=== PATIENT | female | born 1940 | race Caucasian/White ===

== ENCOUNTER → 2023-10-13 09:02 | Outpatient (REF) | payer MEDICARE, SELFPAY | LOC: RAD 09:02 | PROVIDERS: ATTENDING PHYSICIAN Internal Medicine Endocrinology, Diabetes & Metabolism; FAMILY PHYSICIAN Physician Assistant Medical | DX: M81.0 Age-related osteoporosis without current pathological fracture (principal) | CPT/HCPCS: 77080; 77081 ==

== ENCOUNTER → 2023-10-24 08:17 | Outpatient (REF) | payer MEDICARE, SELFPAY | LOC: DHCBS MAIN 08:17 | PROVIDERS: ATTENDING PHYSICIAN Internal Medicine Cardiovascular Disease; FAMILY PHYSICIAN Physician Assistant Medical | DX: I42.8 Other cardiomyopathies (principal) | CPT/HCPCS: 93306 ==

== ENCOUNTER 2023-11-17 12:38 | Emergency (ER) | payer MEDICARE, SELFPAY ==
[2023-11-17 12:52] VITALS: BP 100/45
[2023-11-17 15:22] LABS: % Basophils 0.5 % (0-2); % Eosinophils 0.8 % (0-6); % Immature Granulocytes 0.5 % (0-0.5); % Lymphocytes 19.4 % (20.5-51.1); % Monocytes 7.2 % (1.7-9.3); % Neutrophils 71.6 % (42.2-75.2); Absolute Eosinophils 0.1 10^3/uL (0-0.7); Absolute Lymphocytes 1.2 10^3/uL (1.2-3.4); Absolute Monocytes 0.4 10^3/uL (0.1-0.6); Absolute Neutrophils 4.3 10^3/uL (1.4-6.5); Hematocrit 29.6 % (37.0-47.0); Hemoglobin 9.6 g/dL (12.0-16.0); Mean Corp Hgb Conc. 32.4 g/dL (33.0-37.0); Mean Corpuscular Hgb 26.6 pg (27.0-31.0); Mean Platelet Volume 9.6 fL (7.4-10.4); Nucleated Red Blood Cells % 0 %; Platelet Count 200 10^3/uL (130-400); Red Blood Cell Count 3.61 10^6/uL (4.20-5.40); Red Cell Dist. Width 16.5 % (11.5-14.5)
[2023-11-17 15:38] LABS: ALT (SGPT) < 10 U/L (0-35); AST (SGOT) 18 U/L (14-36); Albumin 3.5 g/dl (3.5-5.0); Alkaline Phosphatase 62 U/L (38-126); Blood Urea Nitrogen 20 mg/dl (7-17); Calcium 10.1 mg/dl (8.4-10.2); Carbon Dioxide 31 mmol/L (22-30); Chloride 99 mmol/L (98-107); Glucose 100 mg/dl (70-99); Potassium 3.2 mmol/L (3.5-5.1); Sodium 138 mmol/L (135-145); Total Bilirubin 1.2 mg/dl (0.2-1.3); Total Protein 6.5 g/dl (6.3-8.2); eGFR > 60.00
[2023-11-17 15:42] LABS: Troponin I 0.016 ng/ml
[2023-11-17] MEDS: KLOR-CON 20 MEQ PO (16:02)
--- NOTE | 2023-11-17 16:03 | ED.MUSCINJ ---
HPI-Injury
General
Chief Complaint: Musculo-Skeletal Complaint
Source: patient
Exam Limitations: none
Time Seen by Provider: 11/17/23 14:46
Nursing documentation reviewed up to this point in time: agreed with
Travel History
Have you had any contact with someone who has COVID-19?: No
Do you have any symptoms of coronavirus? Fever > 100 degrees, chills, cough, shortness of breath, sore throat, loss of taste or smell, muscle aches, or headache?: No
History of Present Illness-Injury
Is this injury a work related problem?: No
Is pt an associate of [facility]?: No
Initial Injury comments:
Patient to ED after falling yesterday. She was seen by PCP today for complaint of right wrist pain. PCP requested she come to ED to r/o other causes of her fall as she was not clear on what led to fall. SHe has no other complaints.
Past History
Past History
ED Past Medical History: Arrthythmia (sinus tachycardia), CAD, Cancer (breast), CHF (Cardiomyopathy), HTN, NIDDM and Other (Osteopenia, dementia)
ED Past Surgical History: Appendectomy, Cardiac (AICD June 2015), Cholecystectomy and Orthopedic
Social History
Tobacco: Non-smoker
Alcohol: None
Personal:
Living: with family
Employment: Retired
Family History
Family History: Other (Father with kidney cancer, mother with dementia)
Review of Systems
Review of Systems
Allergies reviewed?: Yes
All Other Systems: ROS reviewed and negative except as documented in HPI and ROS
Constitutional: Reports no symptoms
EENT: Reports no symptoms
Respiratory: Reports no symptoms
Cardiac: Reports no symptoms
ABD/GI: Reports no symptoms
: Reports no symptoms
Musculoskeletal: Reports joint pain (Pain to right wrist)
Skin: Reports no symptoms
Neurological: Reports no symptoms
Psychiatric: Reports no symptoms
Musculoskeletal Injury Exam
Musculoskeletal Injury Exam
Right Wrist:
Pain with Movement?: Moderate
Tender to palpation?: Moderate
Soft tissue swelling?: Mild
External deformity and angulation?: None
Joint effusion?: None
Contusion?: Moderate
Hematoma-local bleeding into tissue?: None
Strain- Sprain- Tear (Connective tissue injury)?: Moderate
Crepitus with movement?: No
Joint instability?: No
Malalignment/deformity?: No
Range of motion: Full
Distal skin color and temperature: normal-warm & good color
Capillary Refill: normal
Normal distal neurovascular exam?: Yes
Peripheral Pulses: radial (right): 3+
Phy Exam
General Physical Exam
General Presentation: well appearing and no apparent distress
General age: appears stated age
General Skin: warm and dry
General Habitus: normal
General Mental: alert
Cardiovascular Exam
Cardiovascular Exam: regular rate/rhythm and no edema
Pulmonary Exam
Pulmonary Exam: lungs clear and no respiratory distress
Gastrointestinal Exam
Gastrointestinal Exam: normal bowel sounds, non tender, soft, no organomegaly, non distended and no cva tenderness
Rectal Exam: normal external exam, normal sphincter tone, no rectal mass and soft stool
Stool: brown
Guaiac Status: negative
Neurological Exam
Neurological Exam: alert, oriented x3, CN II-XII intact, no motor deficits, no sensory deficits, speech normal and normal gait
Musculoskeletal Exam
Musculoskeletal Exam: full ROM and neuro vasc intact
Skin Exam
Skin Exam: normal color, warm/dry and no rash
Psychiatric Exam
Psychiatric Exam: normal mood/affect
Injury Course
Orders/Labs/Results
Orders:
Orders
11/17/23 12:58
EKG [Electrocardiogram (*1)] Urgent
Reason for Study: Vertigo / Dizzy
CR Wrist - Right Min 3 Views Urgent
Comment:
Reason For Exam: injury/pain
11/17/23 12:59
EKG- Treatment ONCE
11/17/23 14:57
[place] Wrist Right-Tx ONCE
11/17/23 15:11
Complete Blood Count/With Diff Urgent
Comprehensive Metabolic Panel Urgent
Troponin I Urgent
11/17/23 16:02
Potassium Chloride Powder [Klor-Con] 20 meq PO NOW STA
Abnormal Lab Results
11/17/23
15:11
RBC 3.61 L 10^6/uL
(4.20-5.40)
Hgb 9.6 L g/dL
(12.0-16.0)
Hct 29.6 L %
(37.0-47.0)
MCH 26.6 L pg
(27.0-31.0)
MCHC 32.4 L g/dL
(33.0-37.0)
RDW 16.5 H %
(11.5-14.5)
Lymphocytes % 19.4 L %
(20.5-51.1)
Potassium 3.2 L mmol/L
(3.5-5.1)
Carbon Dioxide 31 H mmol/L
(22-30)
BUN 20 H mg/dl
(7-17)
Glucose 100 H mg/dl
(70-99)
11/17/23 15:11
11/17/23 15:11
*Radiology
Radiology exam reviewed: radiology read reviewed
*Pulse Oximetry
Patient hypoxic: no
*Critical Care Note
Total Time (30-74mins, 75-104mins- exclusive of procedures): Not Applicable
Update Note
Update Note:
Labs reviewed. Hgb 9.7 noted. No obvious bleeding. rectal exam neg. K 3.2 Given additional 20meq in dept (Takes 10meq bid). Neuro exam normal. Wrist xray without any evidence of fx, universal splint applied. Discussed findings with patient.
SHe is discharged home and will follow up closely with PCP. given instructions on s/s to return to ED and she is agreeable to plan.
ED Attending Note
-
Portions of this chart may have been created with voice recognition software.� Occasional wrong word or��sound alike� substitutions may have occurred due to the inherent limitations of voice recognition software.
Discharge Plan
Departure
Patient Disposition: Home (Routine Discharge)
Date of Disposition: 11/17/23
Time of Disposition: 15:59
Patient with high blood pressure during this ER visit?: No
Condition: Good
Covid-19: Not Applicable
Discharge Problem:
Sprain of right wrist, Anemia
Instructions: Sprain (DC), Using Cold for Pain
Prescriptions:
No Action
metformin 500 MG tablet
500 mg PO BID
digoxin 0.125 MG tablet
0.125 mg PO Q48H
alendronate 70 MG tablet
70 mg PO WEEKLY
montelukast 10 MG tablet
10 mg PO DAILY
flaxseed oil 1,000 MG capsule
1,000 mg PO DAILY
carvedilol 12.5 mg Tablet
12.5 mg PO BID
furosemide [Lasix] 80 mg Tablet
80 mg PO DAILY
cholecalciferol (vitamin D3) [Vitamin D3] 25 mcg (1,000 unit) Tablet,Chewable
25 mcg PO DAILY
simvastatin 10 mg Tablet
10 mg PO HS
potassium chloride 10 mEq Tablet Extended Release
10 meq PO BID
Referrals:
UNKNOWN - PT DOES,NOT KNOW [Family Provider] -
Activity Restrictions/Additional Instructions:
As we discussed, your blood work is showing signs of anemia. Please follow up with your family doctor on monday for further monitoring and treatment.
Interventions
Interventions:
*Risk Screen - Suicide Last Done: 11/17/23 15:25
*General Assessment Last Done: 11/17/23 15:25
*Neglect/Abuse Screening Last Done: 11/17/23 15:25
ED- Fall Risk Assessment Last Done: 11/17/23 15:25
*ED COVID-19 Vaccine History Last Done: 11/17/23 12:52
ED-Musculoskeletal Assessment Last Done: 11/17/23 15:25
== END 2023-11-17 16:15 | disposition home or self-care (01) ==
LOC: EMR 12:38
PROVIDERS: Nurse Practitioner; EMERGENCY PHYSICIAN Emergency Medicine
DX: S63.501A Unspecified sprain of right wrist, initial encounter (principal); W19.XXXA Unspecified fall, initial encounter; D64.9 Anemia, unspecified
CPT/HCPCS: 99285; 29125; 73110; 80053; 84484; 85025; 93005

== ENCOUNTER 2024-04-22 18:18 | Emergency (ER) | payer MEDICARE, SELFPAY ==
[2024-04-22 19:11] VITALS: BP 108/70
--- NOTE | 2024-04-22 22:24 | ED.GENMED ---
History of Present Illness
<MARISSA Tsai - Last Filed: 04/22/24 22:41>
General
Chief Complaint: Fall
Source: patient
Time Seen by Provider: 04/22/24 21:59
History of Present Illness
History of Present Illness:
Patient is an 83 y/o female with PHx of CHF, HTN, HLD, CAD, cardiomyopathy, breast CA, and DM presenting with left wrist pain following a fall earlier today. Patient states she was gardening earlier and tripped in the yard, landing on her left wrist
and hitting the left side of her head. She denies any LOC. She states she has pain in the dorsal medial aspect of her left wrist with movement, worse with extension. She denies any pain at rest and states the pain is a 3/10 with movement. She also
states she is having pain in the left lateral aspect of her neck. She states it only hurts when she moves her head and it is a 2/10. She states it does not radiate anywhere. She denies any dizziness, vision changes, nausea, vomiting, SOB, chest
pain.
Past History
<MARISSA Tsai - Last Filed: 04/22/24 22:41>
Past History
ED Past Medical History: Arrthythmia (sinus tachycardia), CAD, Cancer (breast), CHF (Cardiomyopathy), HTN, NIDDM and Other (Osteopenia, dementia)
ED Past Surgical History: Appendectomy, Cardiac (AICD June 2015), Cholecystectomy and Orthopedic
Social History
Tobacco: Non-smoker
Alcohol: None
Personal:
Living: with family
Employment: Retired
Family History
Family History: Other (Father with kidney cancer, mother with dementia)
Phy Exam
<MARISSA Tsai - Last Filed: 04/22/24 22:41>
Physical Exam
Physical Exam:
GENERAL: Alert , in no apparent distress
EYE: pupils equal and reactive
Throat: Airway intact, no exudates
NECK: Supple, no significant adenopathy.
CARDIAC: Regular rate and rhythm .
LUNGS: Clear breath sounds bilaterally, no acute respiratory distress, no wheezes/rales/rhonchi
ABDOMEN: Soft, nondistended, nontender
NEUROLOGICAL: Alert and oriented x3, no focal neuro deficits, following commands appropriately
SKIN: Abrasion on the left lateral forehead
MUSCULOSKELETAL: Mild edema to the medial dorsum of the left wrist. Pain with ROM of the left wrist, worse with extension. Sensation and neurovascularly intact b/l. Mild pain with ROM of the cervical spine. Cervival spine ROM intact. Mild muscular
tenderness with palpation of the left trapezius. No bony tenderness to the cervical spine.
PSYCH: Normal and appropriate interaction.
Course
<Anthony Casas [facility] - Last Filed: 04/22/24 22:41>
Orders/Labs/Results
Orders:
Orders
04/22/24 19:15
CT Head W/o Iv Contrast Urgent
Comment:
Reason For Exam: fall from standing, left forehead strike.
Wrist, Left 3 Views CR [CR Wrist - Left Min 3 Views] Urgent
Comment:
Reason For Exam: left wrist injury, pain and swelling.
04/22/24 22:59
Univ. Wrist w/ Thumb Left-Tx ONCE
[place] Wrist Left-Treatment ONCE
Vital Signs
Initial and Last Documented VS:
Initial Vital Signs
Temp Pulse Resp BP Pulse Ox
97.8 F 93 18 108/70 98
04/22/24 19:11 04/22/24 19:11 04/22/24 19:11 04/22/24 19:11 04/22/24 19:11
Last Documented Vital Signs
Temp Pulse Resp BP Pulse Ox
97.8 F 93 18 108/70 98
04/22/24 19:11 04/22/24 19:11 04/22/24 19:11 04/22/24 19:11 04/22/24 19:11
<Gabriela Brandt DO - Last Filed: 04/22/24 23:21>
Orders/Labs/Results
Orders:
Orders
04/22/24 19:15
CT Head W/o Iv Contrast Urgent
Comment:
Reason For Exam: fall from standing, left forehead strike.
Wrist, Left 3 Views CR [CR Wrist - Left Min 3 Views] Urgent
Comment:
Reason For Exam: left wrist injury, pain and swelling.
04/22/24 22:59
Univ. Wrist w/ Thumb Left-Tx ONCE
[place] Wrist Left-Treatment ONCE
Vital Signs
Initial and Last Documented VS:
Initial Vital Signs
Temp Pulse Resp BP Pulse Ox
97.8 F 93 18 108/70 98
04/22/24 19:11 04/22/24 19:11 04/22/24 19:11 04/22/24 19:11 04/22/24 19:11
Last Documented Vital Signs
Temp Pulse Resp BP Pulse Ox
97.8 F 93 18 108/70 98
04/22/24 19:11 04/22/24 19:11 04/22/24 19:11 04/22/24 19:11 04/22/24 19:11
<MARISSA Tsai - Last Filed: 04/22/24 22:41>
MDM/Problems Addressed
Differential Diagnosis Includes:
Left wrist sprain, left wrist fracture, ICH
<MARISSA Tsai - Last Filed: 04/22/24 22:41>
*Radiology
Radiology exam reviewed: radiology read reviewed (Wrist x-ray: no acute fracture or dislocation. Head CT: no acute intracranial abnormality noted. )
*Pulse Oximetry
Patient hypoxic: no
*EKG
Interpreted by ED Provider?: NA
*General Technician Interpretation
Rate: General Technician- N/A
*Critical Care Note
Total Time (30-74mins, 75-104mins- exclusive of procedures): Not Applicable
ED Attending Note
<MARISSA Tsai - Last Filed: 04/22/24 22:41>
-
Portions of this chart may have been created with voice recognition software.� Occasional wrong word or��sound alike� substitutions may have occurred due to the inherent limitations of voice recognition software.
<Gabriela Brandt DO - Last Filed: 04/22/24 23:21>
ED Attending Note
Patient seen and examined by attending physician: Yes
I performed the substantive portion of visit, reviewed & personally made and approve the management plan that is documented in note by myself or SOO.: Yes
ED Attending Note:
This is an 83-year-old woman who resides at home with her .
While outside in her yard she suffered a trip and fall, falling onto her left side injuring her left wrist. She admits to striking the left side of her head on the grass. No loss of consciousness. She was able to get herself up after the fall.
She arrives via EMS.
She complains of moderate pain to her left dorsal wrist. She denies headache, denies neck nor back pain, no leg pain nor abdominal pain, no dizziness nor lightheadedness.
She takes no anticoagulants.
Review of records reveals ED visit November 2021 after suffering similar fall and at that time was complaining of right wrist pain. X-rays were negative. Laboratory studies showed mild anemia and very mild hypokalemia.
Recent outpatient laboratory studies April 11 however at show normal CBC with normal H&H, normal platelet count, normal white blood cell count.
Hemoglobin A1c excellent at 5.8. Unremarkable chemistries. Normal B12, folic acid and iron studies.
TRAUMA EXAM:
VITAL SIGNS: Vital signs reviewed, cooperative
DISTRESS: No active disease. 83-year-old woman appears her stated age, bright and alert, pleasant, appears in no acute distress. Daughter is accompanying.
EYES: Pupils reactive, extraocular muscles intact.
NOSE: No deformity or epistaxis
FACE AND SCALP: There is a 2 cm very superficial abrasion left lateral superior brow, no soft tissue swelling nor palpable tenderness. There is a minute abrasion left lateral distal nose. No epistaxis. No nasal tenderness. External canals no
blood
NECK: Supple nontender, full range of motion without difficulty nor pain.
BACK: Back nontender, pelvis stable to compression
RESPIRATORY: No distress, breath sounds normal, no tender chest wall
CARDIAC: No murmur, pulses equal and strong
ABDOMEN: Soft nontender bowel sounds normal
SKIN: Skin intact no bleeding, color normal
EXTREMITIES: Mild to moderate tenderness dorsal distal radial aspect of the left wrist full wrist range of motion with increased pain with extension and flexion. No tenderness to the hand nor digits, manager water wastewater strength is full and equal bilaterally.
NEUROLOGICAL: Alert, oriented, no motor deficits
PSYCH: Mood affect normal
Concern for left wrist fracture, thus x-ray left wrist obtained. Due to advanced age, head injury CT of the head obtained as well.
Left wrist x-ray negative for fracture. CT of the head is unremarkable.
Nothing in history nor exam to suspect orthostasis nor arrhythmia.
Will place in Velcro wrist splint with thumb.
Recommend Tylenol as needed for pain, ice, elevation.
Prompt follow-up with PCP for recheck.
Patient does have history of mild dementia and daughter concerned with her mother's dementia/memory issues and requests referral to neurologist.
Patient remains bright and alert, oriented x 3 and has full recollection of today's events including mechanism of fall.
She resides at home with her . She did suffer a fall November of this year but at this point it does not appear that she has frequent falls.
At this point patient appears safe to return home and recommend prompt follow-up PCP and she has been provided information for neurology follow-up as well.
Return precautions since discussed.
Discharge Plan
Departure
Patient Disposition: Home (Routine Discharge)
Date of Disposition: 04/22/24
Time of Disposition: 22:59
Patient with high blood pressure during this ER visit?: No
Condition: Good
Discharge Problem:
Fall at home, Contusion of left wrist, initial encounter, left facial abrasion
Instructions: Head Injury in Adults (DC), Preventing falls in adults, Wrist Sprain ED
Prescriptions:
No Action
metformin 500 MG tablet
500 mg PO BID
digoxin 0.125 MG tablet
0.125 mg PO Q48H
alendronate 70 MG tablet
70 mg PO WEEKLY
montelukast 10 MG tablet
10 mg PO DAILY
flaxseed oil 1,000 MG capsule
1,000 mg PO DAILY
carvedilol 12.5 mg Tablet
12.5 mg PO BID
furosemide [Lasix] 80 mg Tablet
80 mg PO DAILY
cholecalciferol (vitamin D3) [Vitamin D3] 25 mcg (1,000 unit) Tablet,Chewable
25 mcg PO DAILY
simvastatin 10 mg Tablet
10 mg PO HS
potassium chloride 10 mEq Tablet Extended Release
10 meq PO BID
Referrals:
Al Agrawal MD [Active] - Call in 1-3 days for appt
Benjamin Wagoner MD [Family Provider] - Call in 1-3 days for appt
Interventions
Interventions:
*Risk Screen - Suicide Last Done: 04/22/24 19:11
*General Assessment Last Done: 04/22/24 19:11
*Neglect/Abuse Screening Last Done: 04/22/24 19:11
ED- Fall Risk Assessment Last Done: 04/22/24 21:36
*ED COVID-19 Vaccine History Last Done: 04/22/24 21:35
ED-Musculoskeletal Assessment Last Done: 04/22/24 21:51
ED- Neurological Assessment Last Done: 04/22/24 21:36
ED-Skin Assessment Last Done: 04/22/24 21:51
Discharge Date and Time
Print Language: MONGOLIAN
== END 2024-04-22 23:10 | disposition home or self-care (01) ==
LOC: EMR 18:18
PROVIDERS: EMERGENCY PHYSICIAN Emergency Medicine; FAMILY PHYSICIAN Family Medicine
DX: S00.81XA Abrasion of other part of head, initial encounter (principal); S60.212A Contusion of left wrist, initial encounter; W01.0XXA Fall on same level from slipping, tripping and stumbling without subsequent striking against object, initial encounter; Y92.009 Unspecified place in unspecified non-institutional (private) residence as the place of occurrence of the external cause; I11.0 Hypertensive heart disease with heart failure; I50.9 Heart failure, unspecified; E78.00 Pure hypercholesterolemia, unspecified; E11.9 Type 2 diabetes mellitus without complications; I42.9 Cardiomyopathy, unspecified; F03.90 Unspecified dementia, unspecified severity, without behavioral disturbance, psychotic disturbance, mood disturbance, and anxiety; I25.10 Atherosclerotic heart disease of native coronary artery without angina pectoris; M85.80 Other specified disorders of bone density and structure, unspecified site; Z85.3 Personal history of malignant neoplasm of breast; Z90.49 Acquired absence of other specified parts of digestive tract; Z95.810 Presence of automatic (implantable) cardiac defibrillator
CPT/HCPCS: 99284; 70450; 73110

== ENCOUNTER 2024-05-08 13:54 | Inpatient (IN) | payer MEDICARE, SELFPAY ==
[2024-05-08 08:20] VITALS: BMI 18.6
[2024-05-08 08:23] VITALS: BP 97/74
--- NOTE | 2024-05-08 08:33 | ED.GENMED ---
History of Present Illness
General
Chief Complaint: Fall
Source: ambulance crew
Exam Limitations: dementia
Time Seen by Provider: 05/08/24 08:31
History of Present Illness
History of Present Illness:
83 yo female from home post fall. Pt with dementia and poor historian.
Spoke with daughter Daneila who states she was in the shower and she heard a thud and her dad opened the door and said 'your mother fell again your mother fell again,' this was unwitnessed, he then went in and found her on the ground complaining of
left hip pain and daughter says she also had left shoulder pain.
Pt denies shoulder pain at this time, has pain in left hip.
She fell a couple weeks ago and sprained her wrist, she had a couple of contusions on her head from the first fall.
Past History
Past History
ED Past Medical History: Arrthythmia (sinus tachycardia), CAD, Cancer (breast), CHF (Cardiomyopathy), HTN, NIDDM and Other (Osteopenia, dementia)
ED Past Surgical History: Appendectomy, Cardiac (AICD June 2015), Cholecystectomy and Orthopedic
Social History
Tobacco: Non-smoker
Alcohol: None
Personal:
Living: with family
Employment: Retired
Family History
Family History: Other (Father with kidney cancer, mother with dementia)
Review of Systems
Review of Systems
Allergies reviewed?: Yes
All Other Systems: ROS reviewed and negative except as documented in HPI and ROS
Constitutional: Denies fever
Respiratory: Denies trouble breathing
Cardiac: Denies chest pain or syncope
ABD/GI: Denies abdominal pain, vomiting or diarrhea
: Reports urgency (keeps repeating 'I have to go to the bathroom' then 'I can't go.' )
Musculoskeletal: Reports other (Left hip pain)
Skin: Reports no symptoms
Neurological: Denies headache
Phy Exam
Physical Exam
Physical Exam:
GENERAL: No acute distress. Alert, demented, frail
CONSTITUTIONAL: Afebrile.
EYES: PERRL, conjunctivae normal
Neck: Supple
ENMT: moist mucus membranes, Pharynx nl
RESPIRATORY: Regular respirations, nonlabored, lungs clear.
CARDIOVASCULAR: Regular rate and rhythm, no murmurs, no rubs.
GI: Soft, nontender, normal BS
MUSCULOSKELETAL: No spinal bony tenderness. Non tender upper extremities with full ROM, no left shoulder tenderness. Moves lower extremities well, no pain RLE. Flexes left knee with no pain. SLR left leg states she has pain in left hip area. Moves
with ease. Well perfused.
SKIN: Warm, dry, pink
PSYCH: Depressed, tearful 'I want to .' Well kept.
NEUROLOGIC: Awake, alert. No focal neurological deficits.
Course
Orders/Labs/Results
Orders:
Orders
05/08/24 08:24
Electrocardiogram (*1) Urgent
Reason for Study: Syncope
Electrocardiogram (*1) Urgent
EKG- Treatment ONCE
05/08/24 08:40
CPK Isoenzyme Urgent
Complete Blood Count/With Diff Urgent
Comprehensive Metabolic Panel Urgent
05/08/24 08:49
Hip, Left 2-3 Views [CR Hip - LT w/wo Pel 2-3 Vw*] Urgent
Comment:
Reason For Exam: pain after fall
Include a pelvis x-ray?: Yes
05/08/24 09:18
0.9% Sodium Chloride 500 ml [Nss] 500 ml IV BOLUS
05/08/24 10:19
CT Lower Ext W/o Iv Cont Lt Urgent
Comment:
Reason For Exam: neg hip xray, still signif pain after fall
05/08/24 10:22
Case Management Consult ONCE
Case Management Consult: Discharge Planning
Requested By:: PHYSICIAN
Comment: Daughter requesting rehab, she works full time paramedic, pts frail and can't take care of her.
Needs home care or rehab. Pt very demented.
05/08/24 10:31
Urinalysis Reflex To Culture Urgent
Date Specimen was Collected: 05/08/24
Time Specimen was Collected: 10:30
05/08/24 11:37
ORTHOPEDIC CONSULT Urgent
Consulting Provider: Alex Villagomez
Was physician already notified: Yes
Reason for consult: fracture left hip
05/08/24 13:18
Morphine Sulfate 2 mg IV Q4HPRN PRN
05/08/24 13:21
Morphine Sulfate 2 mg IV NOW STA
05/08/24 13:37
Negrete Catheter [Catheter- Indwelling] As Directed
Reason for insertion: Acute Retention
Discontinue Date/Time: 05/11/24 0600
05/08/24 13:39
Admit/Transfer Patient As Directed
Co-Sign Provider:
Level of Care: Inpatient admission
Assign to:: Telemetry
Physician / Group: Guillaume Gallardo
Diagnosis: Left hip fracture
Reason for Telemetry: Arrhythmia
Date to Stop Telemetry: 05/11/24
Time to Stop Telemetry: 11:00
Reason for Hospitalization: Left hip fracture
Expected length of stay greater than two midnights?: Yes
ELOS- Estimated Length of Stay in days: 2
I certify the patient meets the requirements for IP care: Yes
PRN Pain Medication Management As Directed
May give lesser potent ordered pain med per pt: Yes
preference::
Protocol:: Medication orders for pain may be administered in a
manner that supports deferring to patient preference
when the pt is:
- Requesting an ordered lesser potent pain medication.
Least to most potent pain medications are defined
as: acetaminophen < NSAID < tramadol < opioids
(morphine, oxycodone, hydromorphone).
- Requesting a lesser dose of the same medication IF
ORDERED.
- Requesting a less intrusive route of administration
if both routes are prescribed by the provider (PO <
IV).
05/08/24 13:40
Code Status As Directed
Resuscitation Status: Do not resuscitate
Reached after discussion with pt or family/Healthcare POA: Yes
05/08/24 13:41
DNR Bracelet Application ONCE
05/11/24 11:00
DC Protocol for Telemetry ONCE
Abnormal Lab Results
05/08/24 05/08/24
08:40 10:31
RBC 4.10 L 10^6/uL
(4.20-5.40)
Hgb 11.8 L g/dL
(12.0-16.0)
Hct 35.3 L %
(37.0-47.0)
Absolute Lymphs (auto) 1.0 L 10^3/uL
(1.2-3.4)
Neutrophils % 77.2 H %
(42.2-75.2)
Lymphocytes % 15.3 L %
(20.5-51.1)
Chloride 97 L mmol/L
(98-107)
BUN 27 H mg/dl
(7-17)
Creatinine 1.4 H mg/dL
(0.6-1.0)
Glucose 138 H mg/dl
(70-99)
Calcium 10.8 H mg/dl
(8.4-10.2)
Total Protein 6.2 L g/dl
(6.3-8.2)
Urine Glucose 2+ A
(Negative)
05/08/24 08:40
05/08/24 08:40
Vital Signs
Initial and Last Documented VS:
Initial Vital Signs
Temp Pulse Resp Pulse Ox
98.0 F 82 18 99
05/08/24 08:20 05/08/24 08:20 05/08/24 08:20 05/08/24 08:20
Last Documented Vital Signs
Temp Pulse Resp BP Pulse Ox
98.0 F 77 15 108/51 100
05/08/24 08:20 05/08/24 13:45 05/08/24 13:45 05/08/24 10:00 05/08/24 11:15
MDM/Problems Addressed
Differential Diagnosis Includes:
mechanical fall, UTI, dehydration, hip fracture/pelvic fracture
MDM/Problems Addressed:
83 yo female from home post fall. Pt with dementia and poor historian.
Spoke with daughter Daniela who states she was in the shower and she heard a thud and her dad opened the door and said 'your mother fell again your mother fell again,' this was unwitnessed, he then went in and found her on the ground complaining of
left hip pain and daughter says she also had left shoulder pain.
Pt denies shoulder pain at this time, has pain in left hip.
She fell a couple weeks ago and sprained her wrist, she had a couple of contusions on her head from the first fall.
Afebrile NAD, EKG Paced rhythm
Pt denies CP, abdominal pain. Denies trouble breathing
CBC with no clinically significant abnormality
CMP: mild elevation BUN/Creat (IV fluids ordered for mild dehydration)
10:10 a.m.
Xray left hip radiology report reviewed: IMPRESSION:
Prior screw fixation of the left femoral neck without evidence of hardware complication or acute periprosthetic fracture.
Mild degenerative changes of the left hip with moderate degenerative changes of the right hip.
Daughter Daniela at bedside. Results discussed with her.
10:20
Pt unable to void in bed. OOB and ambulated to bathroom with significant pain left hip. Was able to urinate.
Will obtain hip CT to r/o occult fx
Daughter states pt cannot go home. frail and unable to care for her, daughter works full time paramedic. Requesting rehab.
Case Management consulted
11:30 AM: CAT scan left hip radiology report read: IMPRESSION:
Prior screw fixation of the proximal left femur. There is a comminuted, minimally displaced fracture through the greater trochanter, superior to the surgical screws.
Plan: Admit: Fx left hip
Hospitalist notified of admission
Orthopedic consult in
*EKG
EKG Intrepretation Date: 05/08/24
Interpretation: abnormal
Rate: normal
Rhythm: other (Atrial paced)
[place]: normal axis
QRS Pattern: normal QRS
Ischemia: no ischemia
*Critical Care Note
Total Time (30-74mins, 75-104mins- exclusive of procedures): Not Applicable
ED Attending Note
-
Portions of this chart may have been created with voice recognition software.� Occasional wrong word or��sound alike� substitutions may have occurred due to the inherent limitations of voice recognition software.
Discharge Plan
Departure
Patient Disposition: Admit
Date of Disposition: 05/08/24
Time of Disposition: 11:42
Presentation/result/management discussed w/ accepting MD/DO: Hospitalist
Condition: Fair
Discharge Problem:
Fall, Closed fracture of left hip, Dementia
Interventions
Interventions:
*Risk Screen - Suicide Last Done: 05/08/24 08:31
*General Assessment Last Done: 05/08/24 12:00
*Neglect/Abuse Screening Last Done: 05/08/24 12:00
ED- Fall Risk Assessment Last Done: 05/08/24 12:00
ED-Musculoskeletal Assessment Last Done: 05/08/24 12:00
ED- Neurological Assessment Last Done: 05/08/24 12:00
ED-Skin Assessment Last Done: 05/08/24 12:00
[2024-05-08 08:59] LABS: % Basophils 0.6 % (0-2); % Eosinophils 1.1 % (0-6); % Immature Granulocytes 0.5 % (0-0.5); % Lymphocytes 15.3 % (20.5-51.1); % Monocytes 5.3 % (1.7-9.3); % Neutrophils 77.2 % (42.2-75.2); Absolute Eosinophils 0.1 10^3/uL (0-0.7); Absolute Monocytes 0.3 10^3/uL (0.1-0.6); Absolute Neutrophils 4.8 10^3/uL (1.4-6.5); Hematocrit 35.3 % (37.0-47.0); Hemoglobin 11.8 g/dL (12.0-16.0); Mean Corp Hgb Conc. 33.4 g/dL (33.0-37.0); Mean Corpuscular Hgb 28.8 pg (27.0-31.0); Mean Corpuscular Volume 86.1 fL (81.0-99.0); Mean Platelet Volume 9.9 fL (7.4-10.4); Nucleated Red Blood Cells % 0 %; Platelet Count 208 10^3/uL (130-400); Red Cell Dist. Width 13.4 % (11.5-14.5); White Blood Cell Count 6.3 10^3/uL (4.8-10.8)
[2024-05-08 09:06] LABS: ALT (SGPT) 12 U/L (0-35); AST (SGOT) 24 U/L (14-36); Albumin 3.8 g/dl (3.5-5.0); Alkaline Phosphatase 74 U/L (38-126); Blood Urea Nitrogen 27 mg/dl (7-17); Calcium 10.8 mg/dl (8.4-10.2); Chloride 97 mmol/L (98-107); Estimated Creatinine Clearance 23 ml/min; Glucose 138 mg/dl (70-99); Potassium 4.4 mmol/L (3.5-5.1); Sodium 139 mmol/L (135-145); Total Bilirubin 1.2 mg/dl (0.2-1.3); Total Protein 6.2 g/dl (6.3-8.2); eGFR 37.56
[2024-05-08 09:21] LABS: Carbon Dioxide 25 mmol/L (22-30); Total CK 49 U/L (30-135)
[2024-05-08] MEDS: NSS 500 IV (09:29)
[2024-05-08 10:00] VITALS: BP 108/51
[2024-05-08 11:25] LABS: Urine Albumin Negative (Neg - Trace); Urine Bilirubin Negative (Negative); Urine Character Clear (Clear); Urine Color Straw; Urine Glucose 2+ (Negative); Urine Ketone Negative (Negative); Urine Leukocyte Negative (Negative); Urine Nitrite Negative (Negative); Urine Occult Blood Negative (Negative); Urine Specific Gravity 1.015 (<1.030); Urine Urobilinogen Negative (Neg - 1+)
--- NOTE | 2024-05-08 13:10 | HPS.HSE ---
Addendum entered and electronically signed by Guillaume Gallardo MD 05/08/24 15:08:
I personally performed a history and physical exam of the patient and discussed management with the resident. I reviewed the resident's note and agree with the documented findings and plan of care HPI/CC.
83-year-old male with past medical history of presumed dementia, essential hypertension, yiq-jhfrxuq-piwywtlbd diabetes mellitus, iron deficiency, chronic systolic congestive heart failure status post ICD, Hyperglycemia, thyroid nodule,
hyperparathyroidism?, History of breast cancer status post bilateral mastectomy and reconstruction surgery and chemotherapy, history of NSVT came to ER after having a mechanical fall at home. Patient apparently slid out of bed and landed on left
hip and shoulder. Patient usually able to get around without any assistance. Patient in significant pain and not able to provide any meaningful information, all information gathered from patient daughter at bedside. No reported history of
dizziness/syncope. Patient of questionable history of dementia and has been in process of being established care with neurologist.
1. Left greater trochanteric fracture
h/o left hip fracture/gamma nailing
Mechanical fall
-CT of LE reviewed
-Orthopedic surgery evaluated and ER and patient not a surgical candidate
-Maintain patient on oral pain medication for pain control
-WBAT left leg for transfer otherwise nonweightbearing.
-Follow-up with orthopedic surgery in office in 2 to 3 weeks.
2. Presumed dementia
-Reported issues with being forgetful. No sundowning agitation or behavioral issues
-Daughter in process of establishing care with neurology
-Psychiatry evaluated in ER and patient does NOT have decision making capacity
-Maintain on PRN ativan for anxiety/agitation
3. Chronic systolic CHF
-Echocardiogram reviewed with patient EF of 20 to 25%
-Patient have ICD in place
-Continue home regimen of Lasix
-Coreg/spironolactone to be held as patient blood pressure soft in ER.
4. NIDDM
-Maintained on metformin and dapagliflozin
-Continue insulin sliding scale
5. On digoxin
-Cardiology note reviewed from previous visit in March 26, no indication of patient having A-fib
-Continue for now
DNR - patient wants to be dnr/dni
Total time spent : 77 mins
I personally saw and examined the patient.
I have reviewed all diagnostic interpretations and treatment plans as written.
Time includes patient management by me, time spent at the patients bedside, time to review lab and imaging results, discussing patient care, documentation in the medical record, and time spent with the family or caregiver and discussing care plan
with RN/Consultants.
Original Note:
Family Physician
-
Family Physician: NOT KNOW UNKNOWN - PT DOES
Chief Complaint
-
Closed left hip fracture
History of Present Illness
83-year-old female with past medical history of dementia presents to the emergency department after an unwitnessed mechanical fall this morning. Patient was found on the ground complaining of left hip and shoulder pain. According to the daughter
the patient uses nothing to ambulate at baseline. CT in the ED demonstrated a left greater trochanter fracture. The patient is argumentative and constantly makes comments about how she 'wants to ' the daughter mentions that they wanted to see
neurology for a formal diagnosis of dementia however they are unable to get an appointment. Patient is emotionally labile and it is unclear if she has capacity to make her own decisions. Patient does not have a power of litigation attorney, her would
be her next of kin. Orthopedics was consulted to see the patient in the emergency department. Patient will be admitted to telemetry floor for further monitoring as she is a history of heart failure reduced ejection fraction.
Medical History
Past Medical History
Past Medical History: Reports Dementia, HTN and NIDDM
Additional Past Medical History:
Heart failure, iron deficiency, allergies
Past Surgical History: Reports Orthopedic and Other (Bilateral mastectomy, hip surgery)
Social History
Unable to obtain full social history at this time due to: Dementia
Family History
Family History: Not pertinent
Allergies / Home Medications
Allergies reflects when Allergies were last updated in [employer].
Home Medications with original date entered in [employer]
Allergy/Medication List:
Allergies
Allergy/AdvReac Type Severity Reaction Status Date / Time
Iodinated Contrast Media Allergy THROAT Verified 11/17/23 12:58
[Iodinated Contrast Media - CLOSED
IV Dye]
Sulfa (Sulfonamide Allergy Throat Verified 11/17/23 12:58
Antibiotics) Closes
trimethoprim Allergy Daughter Verified 11/17/23 12:58
is unsure
Home Medications
metformin 500 mg tablet 500 mg PO BID Diabetes 01/02/15
digoxin 125 mcg (0.125 mg) tablet 0.125 mg PO Q48H Heart disease 06/12/15
montelukast 10 mg tablet 10 mg PO DAILY Allergies 06/10/19
flaxseed oil 1,000 mg capsule 1,000 mg PO DAILY 05/29/20
carvedilol 12.5 mg tablet 12.5 mg PO BID 03/09/23
potassium chloride 10 mEq tablet,extended release 10 meq PO BID 03/20/23
simvastatin 10 mg tablet 10 mg PO HS 03/20/23
cyanocobalamin (vitamin B-12) 1,000 mcg tablet 1,000 mcg PO DAILY 05/08/24
dapagliflozin propanediol 10 mg tablet (Farxiga) 10 mg PO DAILY 05/08/24
ferrous sulfate 325 mg (65 mg iron) tablet 325 mg PO DAILY 05/08/24
furosemide 20 mg tablet (Lasix) 60 mg PO DAILY 05/08/24
spironolactone 25 mg tablet 25 mg PO DAILY 05/08/24
Review of Systems
-
Unable to obtain full review of systems at this time due to: Dementia
Physical Exam
Vital Signs
Vital Signs
Temp Pulse Resp BP Pulse Ox
98.0 F 76 13 108/51 100
05/08/24 08:20 05/08/24 12:15 05/08/24 12:15 05/08/24 10:00 05/08/24 11:15
Physical Exam
General: Appears in Distress
Respiratory: Clear
Cardiac: S1/S2 and Regular Rhythm
GI: Soft and Normal Bowel Sounds
Musculoskeletal: Other (Left hip nontender pain to palpation)
Skin: Warm and Dry
Neuro: Awake; No Alert, Oriented or AO x 3
Psych: Agitated; No Intact Judgment/Insight
Laboratory Results
-
05/08/24 08:40
05/08/24 08:40
Laboratory Results
Total Bilirubin 1.2 mg/dl (0.2-1.3) 05/08/24 08:40
AST 24 U/L (14-36) 05/08/24 08:40
ALT 12 U/L (0-35) 05/08/24 08:40
Alkaline Phosphatase 74 U/L (38-126) 05/08/24 08:40
Data Reviewed
-
Diagnostic Radiology: Report Reviewed by me and Discussed with Physician
CT Scan: Report Reviewed by me and Discussed with Physician
Lab Data: Labs Reviewed by me and Discussed with Physician
Impression/Plan
-
IMPRESSION:
83-year-old female here for an unwitnessed mechanical fall, found to have a broken left hip
PLAN:
#Left hip greater trochanter fracture
CT scan demonstrates a left greater hip trochanter fracture
Orthopedics was consulted
Patient was given morphine for pain
Cardiology evaluation pending to determine if she is a surgical candidate
#Dementia
According to the daughter the patient has been forgetful and emotionally labile
They attempted to get an outpatient appoint with neurology for a formal dementia diagnosis, however they were unable to see the doctor due to insurance reasons
Unclear if patient has dementia and therefore if she has capacity to make her own medical decisions
Psychiatry consult for capacity evaluation
#Heart failure reduced ejection fraction
Most recent echo demonstrates ejection fraction of 20 to 25%
Patient is currently euvolemic and asymptomatic
Continue home carvedilol, digoxin, furosemide, spironolactone
#Urinary urgency
Patient constantly reports that she has to pee, even when redirected that she is able to go
Patient is attempting to stand up to use the bathroom
Patient will be started on Negrete catheter
#CAROLE
Creatinine 1.4 on admission, baseline is 0.9
IV fluids
Avoid nephrotoxins
Follow with daily BMP
#Hyperlipidemia
Continue home simvastatin
#Rnm-wadrggd-rbmfiiaxe diabetes mellitus
Continue patient on home Farxiga and metformin
#CODE STATUS
Conversation was had in the emergency department with the patient regarding her CODE STATUS, her wishes were to be DNR/DNI
Patient does not have a power of litigation attorney and her next of kin would be her
It is unclear if patient has capacity to make medical decisions at this time, currently her DNR/DNI will be honored
Psychiatry to evaluate patient for capacity
CODE STATUS: DNR/DNI
DVT prophylaxis: Heparin
[2024-05-08] MEDS: MORPHINE SULFATE 2 MG IV (13:21)
--- NOTE | 2024-05-08 13:49 | CM ---
CM reviewed patient's chart. Spoke with patient at bedside. CM introduced self and role.
PCP: Dr. Alex Villagomez
Pharmacy: [facility] in [place]
Living situation: Patient lives with her and adult daughter. She lives in a single-level home. 2 steps to enter.
Finances: Patient denies any social insecurities. She is able to afford her housing, clothing, medications, food, utilities and transportation. 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
DME/Ambulation: Patient ambulates independently. She owns a walker.
Transportation: Patient's or daughter will provide transportation, once she is discharged. Patient drives.
Agreeable to home health care?: Yes, if needed. Patient stated, 'I'm not going to no retirement. I mean it. I'd rather at home'.
ANTICIPATED DISCHARGE DISPOSITION:
STR vs. home with home health PT/OT/SN.
CM will continue to follow case and available for further assistance.
--- NOTE | 2024-05-08 14:02 | CON.ORTHO ---
Addendum entered and electronically signed by Alex Villagomez MD 05/08/24 19:25:
Patient seen and examined. Agree with below. NWB LLE except for transfers for 6 weeks. Xray in office in 2-3 weeks.
Original Note:
Consultation
-
Date/Time Consultation Requested: 05/08/24 @1pm
Date/Time Consultation Performed: 05/08/24 @2pm
Requesting Provider: ER Physician
Performing Provider: Tari Orozco PA-C, Chaitanya Villagomez MD
Reason for Consultation: left greater trochanter fracture
Consultation - Orthopedics
History
HPI: 83yo female presents to [facility] following a fall this morning. The fall was unwitnessed. She reports pain in the lateral hip with movement of the leg. She denies any other injuries. Her and daughter are at the bedside. Her
daughter reports that she ambulates without assistive device at baseline. She did have a fall a few weeks ago as well. Xrays and CT scan show a left greater trochanter fracture. Orthopedics has been consulted for further recommendations
PAST MEDICAL HISTORY: CAD, HTN, CHF, NIDDM, dementia
PAST SURGICAL HISTORY: Appendectomy, AICD, cholecystectomy, left hip cannulated screws
SOCIAL HISTORY: Daughter lives with patient and patient's . Ambulates without assistive device at baseline. Denies tobacco, alcohol
FAMILY HISTORY: Non-contributory
REVIEW OF SYSTEMS: 12 point review of systems obtained and negative except those mentioned in the HPI
Allergies / Home Medications
Allergy/AdvReac Type Severity Reaction Status Date / Time
Iodinated Contrast Media Allergy THROAT Verified 11/17/23 12:58
[Iodinated Contrast Media - CLOSED
IV Dye]
Sulfa (Sulfonamide Allergy Throat Verified 11/17/23 12:58
Antibiotics) Closes
trimethoprim Allergy Daughter Verified 11/17/23 12:58
is unsure
�Medication �Instructions �Recorded
metformin 500 mg tablet 500 mg PO BID Diabetes 01/02/15
digoxin 125 mcg (0.125 mg) tablet 0.125 mg PO Q48H Heart disease 06/12/15
montelukast 10 mg tablet 10 mg PO DAILY Allergies 06/10/19
flaxseed oil 1,000 mg capsule 1,000 mg PO DAILY 05/29/20
carvedilol 12.5 mg tablet 12.5 mg PO BID 03/09/23
potassium chloride 10 mEq 10 meq PO BID 03/20/23
tablet,extended release
simvastatin 10 mg tablet 10 mg PO HS 03/20/23
cyanocobalamin (vitamin B-12) 1,000 mcg PO DAILY 05/08/24
1,000 mcg tablet
dapagliflozin propanediol 10 mg 10 mg PO DAILY 05/08/24
tablet (Farxiga)
ferrous sulfate 325 mg (65 mg 325 mg PO DAILY 05/08/24
iron) tablet
furosemide 20 mg tablet (Lasix) 60 mg PO DAILY 05/08/24
spironolactone 25 mg tablet 25 mg PO DAILY 05/08/24
Vital Signs / Lab Results
Temp Pulse Resp BP Pulse Ox
98.0 F 77 15 108/51 100
05/08/24 08:20 05/08/24 13:45 05/08/24 13:45 05/08/24 10:00 05/08/24 11:15
05/08/24 08:40
05/08/24 08:40
RADIOGRPAHIC FINDNGS:
Xrays left hip show previous cannulated screw fixation. There is faint lucency at the greater trochanter
CT Left Lower Extremity show a comminuted minimally displaced greater trochanter fracture superior to surgical screws
PHYSICAL EXAM:
General: no acute distress
HEENT: NCAT, sclera anicteric, normal hearing
Heart: No JVD
Lungs: normal work of breathing on room air
MSK: Directed exam of left lower extremity reveals skin intact. No discolorations. Mild tenderness over the greater trochanter. Pain with movement of hip. Able to plantarflex/dorsiflex the ankle. NVI distally.
Assessment / Plan
ASSESSMENT: 83yo female with minimally displaced left greater trochanter fracture
PLAN: Unfortunately, Ms. Alfred has sustained a left greater trochanter fracture from her fall this morning. This is amenable to nonoperative management. Recommend weight bearing as tolerated to the left leg for transfers only, otherwise non weight
bearing. Use a walker as needed for transfers. Continue with pain medications as needed. PT/OT evaluation. Follow up outpatient in 2-3 weeks for repeat xrays. Please reach out with any other questions or concerns.
--- NOTE | 2024-05-08 14:58 | CON.MD ---
Consultation - Medical
-
patient seen chart reviewed. discussed w dr murillo. and daughter at bedside. spoke to d outside the room after meeting with mrs sykes. the patient is an 83 year who is at after being found on the floor. she had fallen and sustained a hip
fracture. she had made some comments about wanting to be and wanting to leave and this consult was ordered for ? of competency. d has suspected that patient may be suffering from dementia and had made some efforts to have her see a
neurologist but had not been able to get an appt. she and her brother were also fearful re mom paying bills or potentially being the victim of designing persons and had looked in becoming POA but was told by a child center assistant this had to be voluntary and her
parents refused. she had started to look into guardianship as well but had not gotten very far as of yet. mrs sykes clearly has some elements of neurocognitive declined. she could not tell me the month or year 'i look at the calendar'. she could
not tell me why she was here. when i told her she had fallen and broken her hip she did not appear convinced but she did say she would cooperate with treatment. when i came back into the room after talking to her daughter she told me she wanted to
leave. i asked her about saying ' i wanna '. she told me 'i've never smoked or drink and still bad things happen to me. ' she did say she would not harm herself, and denied that she had ever suffered from depression or anxiety when i pressed her
.
past psych hx see above patient has no hx of having been rx for depression or anxiety
medical hx patient is here after a fall where she suffered a fx of left hip. she has hx of chf breast ca and had bilat mastectomy hx chf she has icd hx chf niddm cardiomyopathy non toxic thyroid nodlue mild anemia hypercalcemia w hx
hyperparathyroid hormaone htn hld cat normal ventricles for age small vessel disease ecg w q qtc 445
family hx denied
substance abuse denied
social [place] w h [place] farm in [facility] . has two children. patient grew up in [place].
mse alert but oriented only to person season and hospital speech loud at times patient answered questions generally in a terse manner which sometimes was germane to the issue at hand other times not. she was rather irritable affect labile
denied si hi cognitive impairment evident see above insight judgment lacking
dx neurocognitive disorder
recommendations i do not see patient as competent to make her own medical decisions. she could not tell me why she was here and what rx had been recommended. while initially she said she would cooperative w rx in the next moment she said she
wanted to go home. or daughter could be next of kin making decisions on her behalf in the event that she decides not to cooperate. dr murillo mentioned ativan had been ordered prn. if that is not effective would consider small doses of
risperdal o.25 mg or seroquel 12.5 mg as a prn for agitation will see her in the am.
[2024-05-08 16:06] VITALS: BP 112/54
--- NOTE | 2024-05-08 16:34 | PTCARENOTE ---
Patient arrived from ED in stretcher and pulled over to bed. Purewick in place. Patient uncooperative with answering orientation questions. Family at bedside. Oriented to room. Call woodson within reach.
--- NOTE | 2024-05-08 17:00 | PTCARENOTE ---
Negrete placed per orders, bladder scanned on arrival bladder is 717ml. 14 Turkish placed.
[2024-05-08] MEDS: ROXICODONE 5 MG PO (17:21)
[2024-05-08] MEDS: LANOXIN 125 MCG PO (17:21)
[2024-05-08 19:19] VITALS: BP 98/50
[2024-05-08] MEDS: COLACE PO (19:51)
[2024-05-08] MEDS: GLUCOPHAGE 500 MG PO (19:51)
[2024-05-08] MEDS: SENOKOT PO (19:51)
[2024-05-08] MEDS: LIPITOR 10 MG PO (20:55)
[2024-05-08 23:47] VITALS: BP 96/46
[2024-05-09] VITALS (7 sets, daily range): BP systolic 91–115; BP diastolic 49–64; PULSE 89; O2SAT 98; BMI 17.1
[2024-05-09] MEDS: ROXICODONE 5 MG PO ×3 (00:14→19:24)
--- NOTE | 2024-05-09 03:17 | PTCARENOTE ---
Patient reported frequent feelings of needing to urinate. Patient draining yellow/clear urine in akers. Patient bladder scanned. No amount scanned. Call woodson is within reach.
[2024-05-09 07:19] LABS: Hemoglobin 11.9 g/dL (12.0-16.0); Mean Corp Hgb Conc. 33.1 g/dL (33.0-37.0); Mean Corpuscular Hgb 29.5 pg (27.0-31.0); Mean Corpuscular Volume 89.1 fL (81.0-99.0); Mean Platelet Volume 10.1 fL (7.4-10.4); Platelet Count 179 10^3/uL (130-400); Red Blood Cell Count 4.04 10^6/uL (4.20-5.40); Red Cell Dist. Width 13.3 % (11.5-14.5); White Blood Cell Count 7.8 10^3/uL (4.8-10.8)
[2024-05-09 07:27] LABS: ALT (SGPT) 71 U/L (0-35); AST (SGOT) 143 U/L (14-36); Albumin 3.6 g/dl (3.5-5.0); Alkaline Phosphatase 87 U/L (38-126); Blood Urea Nitrogen 27 mg/dl (7-17); Calcium 10.5 mg/dl (8.4-10.2); Carbon Dioxide 28 mmol/L (22-30); Chloride 98 mmol/L (98-107); Estimated Creatinine Clearance 26 ml/min; Glucose 130 mg/dl (70-99); Potassium 4.3 mmol/L (3.5-5.1); Sodium 139 mmol/L (135-145); Total Bilirubin 1.6 mg/dl (0.2-1.3); Total Protein 6.1 g/dl (6.3-8.2); eGFR 45.19
[2024-05-09] MEDS: GLUCOPHAGE 500 MG PO ×2 (08:45→19:24)
[2024-05-09] MEDS: COLACE 100 MG PO ×2 (08:46→19:24)
[2024-05-09] MEDS: SINGULAIR 10 MG PO (08:46)
--- NOTE | 2024-05-09 08:49 | W.PN.HOSP.TC ---
Addendum entered and electronically signed by Guillaume Gallardo MD 05/09/24 16:19:
Current diagnosis/
Left greater trochanteric fracture traumatic in nature -no clear indication of this being pathologic
Stage I pressure injury
Addendum entered and electronically signed by Guillaume Gallardo MD 05/09/24 15:43:
I saw and evaluated the patient. I reviewed the resident�s note and agree with findings and plan as documented in the resident�s note.
No issues overnight
Not complaining of excessive left hip pain
1. Left greater trochanteric fracture
h/o left hip fracture/gamma nailing
Mechanical fall
-CT of LE reviewed
-Orthopedic surgery evaluated and ER and patient not a surgical candidate
-Maintain patient on oral pain medication for pain control
-WBAT left leg for transfer otherwise nonweightbearing.
-Follow-up with orthopedic surgery in office in 2 to 3 weeks.
2. Presumed dementia
-Reported issues with being forgetful. No sundowning agitation or behavioral issues
-Daughter in process of establishing care with neurology
-Psychiatry evaluated in ER and patient does NOT have decision making capacity
-Maintain on PRN ativan for anxiety/agitation
3. Chronic systolic CHF
-Echocardiogram reviewed with patient EF of 20 to 25%
-Patient have ICD in place
-Coreg/spironolactone to be held as patient blood pressure soft in ER.
4. NIDDM
-Maintained on metformin and dapagliflozin
-Continue insulin sliding scale
5. On digoxin
-Cardiology note reviewed from previous visit in March 26, no indication of patient having A-fib
-Continue for now
6. CAROLE
-Cr trending down, hold lasix dose today.
7. Hypercalcemia
-Patient has history of parathyroid adenoma and not a surgical candidate
-Discussed with primary endocrinology Dr. Macdonald and patient being monitored periodically
-Patient have calcium level of 10.4 which is close to baseline.
DNR - patient wants to be dnr/dni
Total time spent : 53 mins
I personally saw and examined the patient.
I have reviewed all diagnostic interpretations and treatment plans as written.
Time includes patient management by me, time spent at the patients bedside, time to review lab and imaging results, discussing patient care, documentation in the medical record, and time spent with the family or caregiver and discussing care plan
with RN/Consultants.
Original Note:
Today's Communication/Plan
-
PT OT
Case management consult for placement to SNF
Assessment / Plan
Assessment / Plan
IMPRESSION:
83-year-old female here for an unwitnessed mechanical fall, found to have a broken left hip
PLAN:
#Left hip greater trochanter fracture
CT scan demonstrates a left greater hip trochanter fracture
Orthopedics was consulted
Patient was given morphine and oxycodone for pain
Pain is well-controlled on this regiment, patient reports she can still feel it but is very content with her current pain regimen
Orthopedics decided that she is not a surgical candidate and recommended nonoperative management as well as physical therapy and Occupational Therapy
PT OT consult ordered
Case management consult ordered for placement to SNF
#Dementia
According to the daughter the patient has been forgetful and emotionally labile
They attempted to get an outpatient appoint with neurology for a formal dementia diagnosis, however they were unable to see the doctor due to insurance reasons
Unclear if patient has dementia and therefore if she has capacity to make her own medical decisions
Psychiatry consult for capacity evaluation, yesterday 05/08/2024 in the ED psychiatry found the patient did not have capacity
Today patient actually seemed with it, was no longer repeating that she wanted to and was able to hold a [id number] conversation with me. She appears to be much better and does not appear confused to me
#Heart failure reduced ejection fraction
Most recent echo demonstrates ejection fraction of 20 to 25%
Patient is currently euvolemic and asymptomatic
Continue home carvedilol, digoxin, spironolactone
#Urinary urgency
Patient constantly reports that she has to pee, even when redirected that she is able to go
Patient is attempting to stand up to use the bathroom
Patient will be started on Negrete catheter
#Hypercalcemia
Patient's calcium 10.8 on admission, 10.[address] Macdonald for endocrinology
Will reach out to Dr. Macdonald regarding if this never happened before and if she had not received any treatment previously
Will check a vitamin D to lab in a.m.
May consider ordering further workup at another time
Currently holding IV fluids as patient has heart failure with reduced ejection fraction
Trend with daily CMP
#CAROLE
Creatinine 1.4 on admission, baseline is 0.9
CR 1.2 today
Status post IV fluid bolus
Avoid nephrotoxins, currently holding Lasix
Follow with daily BMP
#Hyperlipidemia
Continue home simvastatin
#Omj-yxfkrmn-wwspqkjnw diabetes mellitus
Continue patient on home Farxiga and metformin
#CODE STATUS
Conversation was had in the emergency department with the patient regarding her CODE STATUS, her wishes were to be DNR/DNI
Patient does not have a power of fnp and her next of kin would be her
It is unclear if patient has capacity to make medical decisions at this time, currently her DNR/DNI will be honored
In emergency department psychiatry evaluated patient and deemed she did not have capacity
CODE STATUS: DNR/DNI
DVT prophylaxis: Heparin
Anticipated Discharge: 24 - 48 hours
Subjective/Interval History
-
Date of Service: May 09, 2024
Objective Data
-
Labs:
Laboratory Results
05/09/24
06:12
WBC 7.8
Hgb 11.9 L
Hct 36.0 L
Plt Count 179
Sodium 139
Potassium 4.3
Chloride 98
Carbon Dioxide 28
BUN 27 H
Creatinine 1.2 H
Glucose 130 H
Calcium 10.5 H
Total Bilirubin 1.6 H
AST 143 H
ALT 71 H
Alkaline Phosphatase 87
Vital Signs:
Vital Signs
Temp Pulse Resp BP Pulse Ox
98.9 F 85 18 91/53 97
05/09/24 08:42 05/09/24 08:42 05/09/24 08:42 05/09/24 08:42 05/09/24 08:42
I&O
05/08/24 05/09/24 05/10/24
06:59 06:59 06:59
Intake Total 240 / 240
Output Total 1250 / 1250
Balance -1010 / -1010
[2024-05-09] MEDS: SENOKOT 17.2 MG PO ×2 (09:02→19:24)
[2024-05-09] MEDS: LASIX PO (09:02)
[2024-05-09] MEDS: ProAmatine 5 MG PO ×2 (09:37→12:38)
--- NOTE | 2024-05-09 10:14 | PTCARENOTE ---
Patient with noted low BP prior to admin of lasix. 84/50. Dr. Gallardo made aware. Lasix held. Midodrine ordered.
--- NOTE | 2024-05-09 14:30 | W.PN.UPDATE ---
Update Note
Progress Note Update
patient seen chart reviewed. . at bedside spoke with nursing. the patient was lying on bed. i introduced myself (again) and she told me 'i want to go home'. i explained to her that we are recommending snf to help her get stronger / mobile
after fx of her hip. she wanted to know why she did not have a cast. i explained that sometimes breaks are not casted and they are allowed to heal in other ways and PT is necesary. she said 'why am i just lying here in bed?' i explained to her that
she will not always be lying in bed ....that soon she will be up and given exercises etc. she said 'what am i suposed to do now'. i made several suggestions tv, coloring word searches which i could bring her but she was not interested. i told
her her h was here and they could 'chat'. she said they were fifty years and did all the chatting they needed to do. (they are actually 63 years this past april.) in the end while she asked to leave she did not insist on leaving and
remained quietly in bed w beside her. if she goes to snf hopefully she will be an active participant. she does seem like an active person with some energy on a good day. she also says she is in no physical pain right now and is
'comfortable'. psych is signing off at this point. please call us if you need us to return.
--- NOTE | 2024-05-09 16:05 | PN.CDI ---
CDI
- -
CDI:
Physician Documentation Request
Admit Date: 05/08/24 13:54
Dear Doctor Romeo,
Patient admitted for hip fracture.
03/07 Nursing Documentation: 'Stage 1 pressure injury sacrum'
Physician documentation of the type and location of wounds is required for compliant documentation. Based on the above clinical findings and your assessment, please provide the following in your progress note:
1. Location of the ulcer/wound, including laterality.
2. Type (etiology) of ulcer/wound:
- Diabetic ulcer
- Arterial (ischemic) ulcer
- Traumatic wound
- Venous stasis ulcer
- Pressure (decubitus) ulcer
- Non-healing surgical wound
- Other
- Unable to determine
3. For a non-pressure ulcer, please indicate the depth/severity:
- Limited to the breakdown of skin
- With fat layer exposed
- With necrosis of muscle
- With necrosis of bone
- Other
- Unable to determine
4. If a pressure ulcer, please also include the stage* of the ulcer:
- Stage 1 - Skin intact, non-blanchable redness
- Stage 2 - Partial thickness loss of dermis, includes intact or open blister
- Stage 3 - Full thickness tissue not including bone, tendon or muscle
- Stage 4 - Full thickness tissue loss, including exposed bone, tendon or muscle
- Unstageable - Full thickness loss in which the base of the ulcer is covered by slough (yellow, linton, lawrence, green or brown) and/or eschar (linton, brown or black) in the wound bed.
- Unable to determine
Use of terms such as suspected, likely, concern for, or probable (associated with a specific diagnosis that is being evaluated, monitored, or treated as if it exists) are acceptable and can be coded in the inpatient setting, when documented at the
time of discharge.
Thank you,
Siri Severino RN, BSN
CDI Specialist
Available via [place] text
Please use your independent medical judgment in providing your response.
*Source: National Pressure Ulcer Advisory Panel (NPUAP)
--- NOTE | 2024-05-09 16:10 | PN.CDI ---
CDI
- -
CDI:
Physician Documentation Request
Admit Date: 05/08/24 13:54
Dear Doctor Romeo,
Patient admitted for hip fracture.
ER Physician Documentation: 'ED Past Medical History:...Osteopenia...she was in the shower and she heard a thud and her dad opened the door and said 'your mother fell again your mother fell again,' this was unwitnessed, he then went in and found her
on the ground'
Hip Xray Report: 'There is mild degenerative changes of the left hip'
Please provide further specificity regarding the diagnosis of fracture:
Due to a combination of trauma and a pathological process but the trauma alone would not likely have been sufficient to cause the fracture
Traumatic
Other
Use of terms such as suspected, likely, concern for, or probable (associated with a specific diagnosis that is being evaluated, monitored, or treated as if it exists) are acceptable and can be coded in the inpatient setting, when documented at the
time of discharge.
Thank you,
Siri Severino RN, BSN
CDI Specialist
Available via [place] text
Please use your independent medical judgment in providing your response.
--- NOTE | 2024-05-09 16:36 | CM ---
PT and OT recommended SNf .
Spoke with pt in room .She declined SNF .Spoke with dgt Alexandra on phone.
She said pt lives with dgt Alexandra and .Alexandra agrees that pt need Snf at dc.
Alexandra will speak with pt about SNF .
PLAN Probable SNF
[2024-05-09] MEDS: ProAmatine PO (17:06)
[2024-05-09] MEDS: LIPITOR 10 MG PO (19:24)
[2024-05-10] VITALS (8 sets, daily range): BP systolic 92–123; BP diastolic 53–73; BMI 17.0
[2024-05-10] MEDS: MORPHINE SULFATE 2 MG IV (01:30)
[2024-05-10 05:14] LABS: % Basophils 0.4 % (0-2); % Eosinophils 1.6 % (0-6); % Immature Granulocytes 0.4 % (0-0.5); % Lymphocytes 14.9 % (20.5-51.1); % Monocytes 6.4 % (1.7-9.3); % Neutrophils 76.3 % (42.2-75.2); Absolute Eosinophils 0.1 10^3/uL (0-0.7); Absolute Monocytes 0.4 10^3/uL (0.1-0.6); Absolute Neutrophils 5.2 10^3/uL (1.4-6.5); Hemoglobin 11.7 g/dL (12.0-16.0); Mean Corp Hgb Conc. 33.4 g/dL (33.0-37.0); Mean Corpuscular Volume 86.8 fL (81.0-99.0); Mean Platelet Volume 9.6 fL (7.4-10.4); Nucleated Red Blood Cells % 0 %; Platelet Count 178 10^3/uL (130-400); Red Blood Cell Count 4.03 10^6/uL (4.20-5.40); Red Cell Dist. Width 13.6 % (11.5-14.5); White Blood Cell Count 6.9 10^3/uL (4.8-10.8)
[2024-05-10 05:38] LABS: ALT (SGPT) 117 U/L (0-35); AST (SGOT) 251 U/L (14-36); Albumin 3.4 g/dl (3.5-5.0); Alkaline Phosphatase 129 U/L (38-126); Blood Urea Nitrogen 25 mg/dl (7-17); Carbon Dioxide 31 mmol/L (22-30); Chloride 99 mmol/L (98-107); Estimated Creatinine Clearance 26 ml/min; Glucose 126 mg/dl (70-99); Potassium 4.2 mmol/L (3.5-5.1); Sodium 139 mmol/L (135-145); Total Protein 5.8 g/dl (6.3-8.2); eGFR 45.19
[2024-05-10 05:51] LABS: Vitamin D, 25-OH*** 32.4 ng/mL (30-80)
[2024-05-10] MEDS: GLUCOPHAGE 500 MG PO ×2 (09:22→20:33)
[2024-05-10] MEDS: ProAmatine 5 MG PO ×2 (09:22→11:42)
[2024-05-10] MEDS: SINGULAIR 10 MG PO (09:22)
[2024-05-10] MEDS: COLACE 100 MG PO ×2 (09:23→20:33)
[2024-05-10] MEDS: SENOKOT 17.2 MG PO ×2 (09:23→20:32)
--- NOTE | 2024-05-10 10:26 | PN.CDI ---
CDI
- -
CDI:
Physician Documentation Request
Admit Date: 05/08/24 13:54
Dear Doctor Romeo,
Patient admitted for hip fracture.
05/09 Supervisor Home Energy Consultant Assessment: 'Pts weight listed previous ED visit as 110 lbs 11/17/23 reflective of 11 lb (10%) in 6 months, significant per AND/ASPEN. During visit RD able to visulize protrusion of clavical, temporal wasting apparent ribs,
calf muscle wasting. Pt meets ASPEN/AND criteria for moderate protein calorie malnutrition'
Based on the above information and your assessment, which of the following most accurately represents the patient's nutritional status?
Moderate protein calorie malnutrition
Other
[place] Criteria ([facility] Hospitalist 2017)
2 or more criteria must be present for either
non severe or severe malnutrition
Note that the criteria differs related to the
presence of an acute or chronic illness
Acute Illness Chronic Illness
Energy Intake Non Severe: <75% for >7 days Non Severe: <75% for >1 month
Severe: <50% for >5 days Severe: <75% for >1 month
Weight Loss Non Severe: 1-2% over 1 week Non Severe: 5% over 1 month
5% over 1 month 7.5% over 3 months
7.5% over 3 months 10% over 6 months
1 year N/A 20% over 1 year
Severe: >2% over 1 week Severe: >5% over 1 month
>5% over 1 month >7.5% over 3 months
>7.5% over 3 months >10% over 6 months
1 year N/A >20% over 1 year
Body Fat Non Severe: Mild Decrease Non Severe: Mild Loss
Severe: Moderate Decrease Severe: Severe Loss
Muscle Mass Non Severe: Mild Decrease Non Severe: Mild Loss
Severe: Moderate Decrease Severe: Severe Loss
Fluid Accumulation Non Severe: Mild Accumulation Non Severe: Mild Accumulation
Severe: Moderate to severe Severe: Moderate to severe
accumulation accumulation
Reduced Loom Changer Strength Non Severe: N/A Non Severe: N/A
Severe: Measurably reduced Severe: Measurably reduced
Additional criteria that can be used to Determine if Mild or Moderate Malnutrition (Merck Manual 2018)
Mild Moderate Severe
Albumin gm/dl <3.0 gm/dl <2.5 gm/dl <2.0 gm/dl
Pre Albumin mg/dl <15 gm/dl <10 mg/dl <5.0 mg/dl
BMI <18.5 <17 <16
Use of terms such as suspected, likely, concern for, or probable (associated with a specific diagnosis that is being evaluated, monitored, or treated as if it exists) are acceptable and can be coded in the inpatient setting, when documented at the
time of discharge.
Thank you,
Siri Severino RN, BSN
CDI Specialist
Available via [place] text
Please use your independent medical judgment in providing your response.
--- NOTE | 2024-05-10 10:36 | PN.CDI ---
CDI
- -
CDI:
Physician Documentation Request
Admit Date: 05/08/24 13:54
Dear Doctor Romeo,
Patient admitted for hip fracture.
05/08 PCN: 'Negrete placed per orders, bladder scanned on arrival bladder is 717ml. 14 [place] placed.'
05/09 Hospitalist PN: 'Urinary urgency
Patient constantly reports that she has to pee, even when redirected that she is able to go
Patient is attempting to stand up to use the bathroom
Patient will be started on Negrete catheter'
Based on the above, could you clarify in the progress notes, the appropriate diagnosis, if significant, that supports the above abnormalities and additional evaluation, monitoring and/or treatment rendered:
Urinary retention
Urinary urgency
Other
Use of terms such as suspected, likely, concern for, or probable (associated with a specific diagnosis that is being evaluated, monitored, or treated as if it exists) are acceptable and can be coded in the inpatient setting, when documented at the
time of discharge.
Thank you,
Siri Severino RN, BSN
CDI Specialist
Available via [place] text
Please use your independent medical judgment in providing your response.
[2024-05-10] MEDS: LANOXIN 125 MCG PO (11:42)
[2024-05-10 12:02] LABS: COVID-19 Antigen Negative (Negative)
--- NOTE | 2024-05-10 13:15 | W.PN.HOSP.TC ---
Addendum entered and electronically signed by Guillaume Gallardo MD 05/10/24 16:59:
Add to diagnosis list
Acute urinary retention -indwelling Negrete catheter, will attempt voiding trial
Moderate protein calorie malnutrition
Addendum entered and electronically signed by Guillaume Gallardo MD 05/10/24 16:06:
I saw and evaluated the patient. I reviewed the resident�s note and agree with findings and plan as documented in the resident�s note.
1. Left greater trochanteric fracture - traumatic nature
h/o left hip fracture/gamma nailing
Mechanical fall
-CT of LE reviewed
-Orthopedic surgery evaluated and ER and patient not a surgical candidate
-Maintain patient on oral pain medication for pain control
-WBAT left leg for transfer otherwise nonweightbearing.
-Follow-up with orthopedic surgery in office in 2 to 3 weeks.
-Patient will need to go through rehab
2. Presumed dementia
-Reported issues with being forgetful. No sundowning agitation or behavioral issues
-Daughter in process of establishing care with neurology
-Psychiatry evaluated in ER and patient does NOT have decision making capacity
-Maintain on PRN ativan for anxiety/agitation
3. Chronic systolic CHF
-Echocardiogram reviewed with patient EF of 20 to 25%
-Patient have ICD in place
-Coreg/spironolactone to be held as patient blood pressure soft
-Resume back on lasix 60mg/d. give 40mg today
4. NIDDM
-Maintained on metformin and dapagliflozin
-Continue insulin sliding scale
5. On digoxin
-Cardiology note reviewed from previous visit in March 26, no indication of patient having A-fib
-Continue for now
6. CAROLE
-Cr trending down, hold lasix dose today.
7. Hypercalcemia
-Patient has history of parathyroid adenoma and not a surgical candidate
-Discussed with primary endocrinology Dr. Macdonald and patient being monitored periodically
-Calcium uptrended today, giving dose of lasix for HF. cant give IVF. monitor
8. Acute transaminitis
Elevated LFT
-Questionable of hepatic congestion versus medication related
-Resume back Lasix
-Hold statin
-Liver/GB US
DNR - patient wants to be dnr/dni
Care plan discussed with daughter.
Time spent : 53 mins
Original Note:
Today's Communication/Plan
-
Currently pending SNF placement
Assessment / Plan
Assessment / Plan
IMPRESSION:
83-year-old female here for an unwitnessed mechanical fall, found to have a broken left hip
PLAN:
# Traumatic left hip greater trochanter fracture
Patient has a past medical history of osteopenia, broken hip was secondary to traumatic fall
CT scan demonstrates a left greater hip trochanter fracture
Orthopedics was consulted
Patient was given morphine and oxycodone for pain
Pain is well-controlled on this regiment, patient reports she can still feel it but is very content with her current pain regimen
Orthopedics decided that she is not a surgical candidate and recommended nonoperative management as well as physical therapy and Occupational Therapy
PT OT consult ordered
Case management consult ordered for placement to SNF
#Dementia
According to the daughter the patient has been forgetful and emotionally labile
They attempted to get an outpatient appoint with neurology for a formal dementia diagnosis, however they were unable to see the doctor due to insurance reasons
Unclear if patient has dementia and therefore if she has capacity to make her own medical decisions
Psychiatry consult for capacity evaluation, psychiatry has evaluated the patient and deemed that she does not have capacity for medical decisions
Psychiatry following, recommendations appreciated
#Heart failure reduced ejection fraction
Most recent echo demonstrates ejection fraction of 20 to 25%
Patient is currently euvolemic and asymptomatic
Continue home carvedilol, digoxin, spironolactone
#Urinary urgency
Patient constantly reports that she has to pee, even when redirected that she is able to go
Patient is attempting to stand up to use the bathroom
Patient will be started on Negrete catheter
#Hypercalcemia
Patient's calcium 10.8 on admission, 10.[address] Macdonald for endocrinology
Per Dr. Macdonald, patient's outpatient county engineer. She was not a candidate for parathyroid surgery, she had does have a parathyroid adenoma, right lower pole. This does not significantly impact her calcium levels or bone density. They
have just been monitoring her calcium, her last calcium was 10.4 and has been wildly fluctuating. She has another appoint with Dr. Macdonald next year in February.
Vitamin D resulted 32.4, within normal limits
Currently holding IV fluids as patient has heart failure with reduced ejection fraction
Trend with daily CMP
#CAROLE
Creatinine 1.4 on admission, baseline is 0.9
CR 1.2 today
Status post IV fluid bolus
Avoid nephrotoxins, currently holding Lasix
Follow with daily BMP
#Hyperlipidemia
Continue home simvastatin
#Ygz-gjydkln-xehuvordu diabetes mellitus
Continue patient on home Farxiga and metformin
#Transaminitis
Patient AST, ALT and T bilirubin has been trending upwards since yesterday.
Will order liver/gallbladder ultrasound
Could potentially be from congestive hepatopathy
Resuming Lasix, discontinuing statin for the time being
#CODE STATUS
Conversation was had in the emergency department with the patient regarding her CODE STATUS, her wishes were to be DNR/DNI
Patient does not have a power of document review attorney and her next of kin would be her
It is unclear if patient has capacity to make medical decisions at this time, currently her DNR/DNI will be honored
In emergency department psychiatry evaluated patient and deemed she did not have capacity
#Moderate protein calorie malnutrition
CODE STATUS: DNR/DNI
DVT prophylaxis: Heparin
Anticipated Discharge: 24 - 48 hours
Subjective/Interval History
-
Date of Service: May 10, 2024
Objective Data
-
Labs:
Laboratory Results
05/10/24
04:39
WBC 6.9
Hgb 11.7 L
Hct 35.0 L
Plt Count 178
Sodium 139
Potassium 4.2
Chloride 99
Carbon Dioxide 31 H
BUN 25 H
Creatinine 1.2 H
Glucose 126 H
Calcium 11.0 H
Total Bilirubin 2.0 H
AST 251 H
ALT 117 H
Alkaline Phosphatase 129 H
Vital Signs:
Vital Signs
Temp Pulse Resp BP Pulse Ox
98.1 F 107 16 99/69 97
05/10/24 11:18 05/10/24 11:18 05/10/24 11:18 05/10/24 11:48 05/10/24 11:18
I&O
05/09/24 05/10/24 05/11/24
06:59 06:59 06:59
Intake Total 240 / 240 240 / 240
Output Total 1250 / 1250 700 / 700
Balance -1010 / -1010 -460 / -460
Review of Systems
-
Constitutional: Reports No Symptoms
Respiratory: Reports No Symptoms
Cardiac: Reports No Symptoms
Abdomen/GI: Reports No Symptoms
Physical Exam
-
General: Well Developed, Well Nourished, Comfortable and Conversant
Cardiac: Regular Rhythm and S1/S2
GI: Soft, Nontender, Nondistended and Normal Bowel Sounds
Skin: Warm and Dry
Neuro: Awake, Alert, Oriented and AO x 3
Psych: Calm and Intact Judgement/Insight
Data Reviewed
-
Labs: Labs Reviewed by me and Discussed with Physician
--- NOTE | 2024-05-10 14:34 | PTCARENOTE ---
Due to COVID exposure, patient moved to private room, 326. Transported w/ all belongings. Report given to Liat KERR.
--- NOTE | 2024-05-10 15:00 | PTCARENOTE ---
Patient received from [facility]. Placed on Droplet Precautions while doing serial COVID checks. Patient oriented however does not have capacity to make appropriate decisions for herself. Consistently perseverates/focusing on 'going home/I don't need to
be here.' Bed Alarm active for safety.
[2024-05-10] MEDS: LASIX 40 MG PO (16:15)
--- NOTE | 2024-05-10 16:24 | CM ---
Addendum entered by Kimberly Gautam 05/11/24 09:00:
[facility] interested, but will re-evaluate on Monday for bed availability.
Original Note:
PT and OT recommended SNf .
Spoke with dgchas Salinas [phone] she was at work.Explained pt seen by psychiatry and can not make her own decision on dc planning.
Alexandra said she can not visit till after work later tonight. Reviewed SNF in area with PACC data. SNF List P[facility] list given to pt.
Alexandra requested SN[facility] referral [facility]
RN notified family pts room moved to private room 3w26.
PLAN SNF : Referral placed for [facility]
--- NOTE | 2024-05-10 18:00 | PTCARENOTE ---
Notified covering provider Dr. Gallardo that patient has blood-tinged urine in akers. No intervention at this time.
[2024-05-10] MEDS: ProAmatine PO (18:05)
[2024-05-11] VITALS (7 sets, daily range): BP systolic 92–115; BP diastolic 57–72; PULSE 94; O2SAT 97
[2024-05-11 08:29] LABS: % Basophils 0.6 % (0-2); % Eosinophils 1.3 % (0-6); % Immature Granulocytes 0.3 % (0-0.5); % Lymphocytes 15.3 % (20.5-51.1); % Monocytes 7.7 % (1.7-9.3); % Neutrophils 74.8 % (42.2-75.2); Absolute Eosinophils 0.1 10^3/uL (0-0.7); Absolute Monocytes 0.5 10^3/uL (0.1-0.6); Absolute Neutrophils 5.1 10^3/uL (1.4-6.5); Hemoglobin 11.7 g/dL (12.0-16.0); Mean Corp Hgb Conc. 32.5 g/dL (33.0-37.0); Mean Corpuscular Hgb 28.2 pg (27.0-31.0); Mean Corpuscular Volume 86.7 fL (81.0-99.0); Mean Platelet Volume 10.1 fL (7.4-10.4); Nucleated Red Blood Cells % 0 %; Platelet Count 197 10^3/uL (130-400); Red Blood Cell Count 4.15 10^6/uL (4.20-5.40); Red Cell Dist. Width 13.5 % (11.5-14.5); White Blood Cell Count 6.8 10^3/uL (4.8-10.8)
--- NOTE | 2024-05-11 08:58 | W.PN.HOSP.TC ---
Today's Communication/Plan
-
Liver/GB US
SNF placment
Assessment / Plan
Assessment / Plan
IMPRESSION:
83-year-old female here for an unwitnessed mechanical fall, found to have a broken left hip
PLAN:
# Traumatic left hip greater trochanter fracture
Patient has a past medical history of osteopenia, broken hip was secondary to traumatic fall
CT scan demonstrates a left greater hip trochanter fracture
Orthopedics was consulted
Patient was given morphine and oxycodone for pain
Pain is well-controlled on this regiment, patient reports she can still feel it but is very content with her current pain regimen
Orthopedics decided that she is not a surgical candidate and recommended nonoperative management as well as physical therapy and Occupational Therapy
Will follow up with orthopedics in office in 2-3 weeks
PT OT working with patient
Case management consult ordered for placement to SNF
#Dementia
According to the daughter the patient has been forgetful and emotionally labile
They attempted to get an outpatient appoint with neurology for a formal dementia diagnosis, however they were unable to see the doctor due to insurance reasons
Unclear if patient has dementia and therefore if she has capacity to make her own medical decisions
Psychiatry consult for capacity evaluation, psychiatry has evaluated the patient and deemed that she does not have capacity for medical decisions
Psychiatry following, recommendations appreciated
#Heart failure reduced ejection fraction
Most recent echo demonstrates ejection fraction of 20 to 25%
Patient is currently euvolemic and asymptomatic
Continue home lasix 60
Holding coreg/spirnolactone as BP is soft
#Acute Urinary Retention
Patient constantly reports that she has to pee, even when redirected that she is able to go
Patient is attempting to stand up to use the bathroom
Continue indwelling Negrete catheter
Will attempt voiding trial
#Hypercalcemia
Patient's calcium 10.8 on admission, 10.[address] Macdonald for endocrinology
Per Dr. Macdonald, patient's outpatient software database architect. She was not a candidate for parathyroid surgery, she had does have a parathyroid adenoma, right lower pole. This does not significantly impact her calcium levels or bone density. They
have just been monitoring her calcium, her last calcium was 10.4 and has been wildly fluctuating. She has another appoint with Dr. Macdonald next year in February.
Vitamin D resulted 32.4, within normal limits
Currently holding IV fluids as patient has heart failure with reduced ejection fraction
Trend with daily CMP
#CAROLE
Creatinine 1.4 on admission, baseline is 0.9
CR 1.2 today
Status post IV fluid bolus
Avoid nephrotoxins
Follow with daily BMP
#Hyperlipidemia
Continue home simvastatin
#Ilp-koejdlc-imavxwnbf diabetes mellitus
Continue patient on home Farxiga and metformin
#Transaminitis
Patient AST, ALT and T bilirubin has been trending upwards since yesterday.
Will order liver/gallbladder ultrasound
Could potentially be from congestive hepatopathy
Resuming Lasix, discontinuing statin for the time being
#CODE STATUS
Conversation was had in the emergency department with the patient regarding her CODE STATUS, her wishes were to be DNR/DNI
Patient does not have a power of flat knitter and her next of kin would be her
It is unclear if patient has capacity to make medical decisions at this time, currently her DNR/DNI will be honored
In emergency department psychiatry evaluated patient and deemed she did not have capacity
#Moderate protein calorie malnutrition
CODE STATUS: DNR/DNI
DVT prophylaxis: Heparin
Anticipated Discharge: 24 - 48 hours
Subjective/Interval History
-
Date of Service: May 11, 2024
No acute events overnight
Patient reports no COVID symptoms
Patient currently n.p.o. for a liver and gallbladder ultrasound
Objective Data
-
Labs:
Laboratory Results
05/11/24
07:29
WBC 6.8
Hgb 11.7 L
Hct 36.0 L
Plt Count 197
Sodium Pending
Potassium Pending
Chloride Pending
Carbon Dioxide Pending
BUN Pending
Creatinine Pending
Glucose Pending
Calcium Pending
Total Bilirubin Pending
AST Pending
ALT Pending
Alkaline Phosphatase Pending
Vital Signs:
Vital Signs
Temp Pulse Resp BP Pulse Ox
98.1 F 98 20 103/61 97
05/11/24 07:55 05/11/24 07:55 05/11/24 07:55 05/11/24 07:55 05/11/24 07:55
I&O
05/10/24 05/11/24 05/12/24
06:59 06:59 06:59
Intake Total 240 / 240 240 / 240
Output Total 700 / 700 210 / 210 525 / 525
Balance -460 / -460 30 / 30 -525 / -525
Review of Systems
-
Unable to obtain full review of systems at this time due to: Dementia
Constitutional: Reports No Symptoms
Respiratory: Reports No Symptoms
Cardiac: Reports No Symptoms
Abdomen/GI: Reports No Symptoms
Physical Exam
-
General: Well Developed, No Apparent Distress, Comfortable and Appears Chronically Ill
Respiratory: Clear to Auscultation
Cardiac: Regular Rhythm and S1/S2
GI: Soft, Nontender, Nondistended and Normal Bowel Sounds
Musculoskeletal: No Edema
Skin: Warm and Dry
Neuro: Awake
Data Reviewed
-
Labs: Labs Reviewed by me and Discussed with Physician
[2024-05-11 09:42] LABS: ALT (SGPT) 77 U/L (0-35); AST (SGOT) 57 U/L (14-36); Albumin 3.4 g/dl (3.5-5.0); Alkaline Phosphatase 117 U/L (38-126); Blood Urea Nitrogen 23 mg/dl (7-17); Calcium 10.9 mg/dl (8.4-10.2); Carbon Dioxide 28 mmol/L (22-30); Chloride 98 mmol/L (98-107); Estimated Creatinine Clearance 26 ml/min; Glucose 115 mg/dl (70-99); Potassium 4.1 mmol/L (3.5-5.1); Sodium 139 mmol/L (135-145); Total Bilirubin 1.2 mg/dl (0.2-1.3); eGFR 45.19
[2024-05-11] MEDS: LASIX 60 MG PO (10:15)
[2024-05-11] MEDS: SENOKOT 17.2 MG PO ×2 (10:16→20:02)
[2024-05-11] MEDS: ProAmatine PO ×3 (10:16→17:12)
[2024-05-11] MEDS: GLUCOPHAGE 500 MG PO ×2 (10:16→20:03)
[2024-05-11] MEDS: COLACE 100 MG PO ×2 (10:16→20:02)
[2024-05-11] MEDS: SINGULAIR 10 MG PO (10:16)
--- NOTE | 2024-05-11 12:08 | W.PN.UPDATE ---
Update Note
Progress Note Update
I saw and evaluated the patient. I reviewed the resident�s note and agree with findings and plan as documented in the resident�s note.
Patient continues to demand to be discharged home. Elevated discussion of importance and rationale of patient requiring rehab due to fracture and nonweightbearing capacity on left leg. Unfortunately no luck and patient does not understand her
situation.
1. Left greater trochanteric fracture - traumatic nature
h/o left hip fracture/gamma nailing
Mechanical fall
-CT of LE reviewed
-Orthopedic surgery evaluated and ER and patient not a surgical candidate
-Maintain patient on oral pain medication for pain control
-WBAT left leg for transfer otherwise nonweightbearing.
-Follow-up with orthopedic surgery in office in 2 to 3 weeks.
-Patient will need to go through rehab
-Patient continues to demand to be discharged home does not understand her condition and rationale of recommendation.
2. Presumed dementia
-Reported issues with being forgetful. No sundowning agitation or behavioral issues
-Daughter in process of establishing care with neurology
-Psychiatry evaluated in ER and patient does NOT have decision making capacity
-Maintain on PRN ativan for anxiety/agitation
3. Chronic systolic CHF
-Echocardiogram reviewed with patient EF of 20 to 25%
-Patient have ICD in place
-Coreg/spironolactone to be held as patient blood pressure soft
-Maintain on home dose of lasix 60mg/d
4. NIDDM
-Maintained on metformin and dapagliflozin
-Continue insulin sliding scale
5. On digoxin
-Cardiology note reviewed from previous visit in March 26, no indication of patient having A-fib
-Continue for now
6. CAROLE
-Cr trending down, hold lasix dose today.
7. Hypercalcemia
-Patient has history of parathyroid adenoma and not a surgical candidate
-Discussed with primary endocrinology Dr. Macdonald and patient being monitored periodically
-Calcium fluctuating. 10.9 today.
8. Acute transaminitis - Improved
H/o cholecystectomy
-Questionable of hepatic congestion versus medication related
-Liver and gallbladder ultrasound showing dilated CBD of 11 mm and pancreatic dilation of 3 mm. No right upper quadrant pain/nausea. Low concern of CBD stone. continue monitoring
-As patient LFT improved rapidly after reinitiation of Lasix this was likely congestive hepatopathy
9. Acute urinary retention
-Patient had close to 1.2 L urine in ER. Required Negrete catheter placement
-Attempted voiding trial
Moderate protein calorie malnutrition
DNR - patient wants to be dnr/dni
Total time spent : 52 mins
[2024-05-12] VITALS (7 sets, daily range): BP systolic 99–115; BP diastolic 55–68; PULSE 114; O2SAT 97
[2024-05-12 06:59] LABS: COVID-19 Antigen Negative (Negative)
[2024-05-12 08:01] LABS: % Basophils 0.4 % (0-2); % Eosinophils 0.7 % (0-6); % Immature Granulocytes 0.6 % (0-0.5); % Lymphocytes 9.9 % (20.5-51.1); % Monocytes 6.4 % (1.7-9.3); Absolute Eosinophils 0.1 10^3/uL (0-0.7); Absolute Lymphocytes 0.7 10^3/uL (1.2-3.4); Absolute Monocytes 0.5 10^3/uL (0.1-0.6); Absolute Neutrophils 5.7 10^3/uL (1.4-6.5); Hematocrit 39.4 % (37.0-47.0); Hemoglobin 12.9 g/dL (12.0-16.0); Mean Corp Hgb Conc. 32.7 g/dL (33.0-37.0); Mean Corpuscular Hgb 28.7 pg (27.0-31.0); Mean Corpuscular Volume 87.6 fL (81.0-99.0); Mean Platelet Volume 10.1 fL (7.4-10.4); Nucleated Red Blood Cells % 0 %; Platelet Count 215 10^3/uL (130-400); Red Cell Dist. Width 13.3 % (11.5-14.5)
[2024-05-12 08:25] LABS: ALT (SGPT) 54 U/L (0-35); AST (SGOT) 38 U/L (14-36); Albumin 3.8 g/dl (3.5-5.0); Alkaline Phosphatase 104 U/L (38-126); Blood Urea Nitrogen 22 mg/dl (7-17); Calcium 11.3 mg/dl (8.4-10.2); Carbon Dioxide 30 mmol/L (22-30); Chloride 97 mmol/L (98-107); Estimated Creatinine Clearance 28 ml/min; Glucose 129 mg/dl (70-99); Potassium 4.1 mmol/L (3.5-5.1); Sodium 139 mmol/L (135-145); Total Bilirubin 1.6 mg/dl (0.2-1.3); Total Protein 6.5 g/dl (6.3-8.2); eGFR 50.17
[2024-05-12] MEDS: ProAmatine 5 MG PO ×3 (09:26→17:21)
[2024-05-12] MEDS: SENOKOT 17.2 MG PO ×2 (09:26→20:44)
[2024-05-12] MEDS: LASIX 60 MG PO (09:26)
[2024-05-12] MEDS: SINGULAIR PO (09:27)
[2024-05-12] MEDS: COLACE 100 MG PO ×2 (09:27→20:44)
[2024-05-12] MEDS: GLUCOPHAGE 500 MG PO ×2 (09:27→20:44)
[2024-05-12] MEDS: TYLENOL 650 MG PO (12:29)
[2024-05-12] MEDS: LANOXIN 125 MCG PO (12:30)
--- NOTE | 2024-05-12 14:12 | W.PN.HOSP.TC ---
Today's Communication/Plan
-
see note
Assessment / Plan
Assessment / Plan
1. Left greater trochanteric fracture - traumatic nature
h/o left hip fracture/gamma nailing
Mechanical fall
-CT of LE reviewed
-Orthopedic surgery evaluated and ER and patient not a surgical candidate
-Maintain patient on oral pain medication for pain control
-WBAT left leg for transfer otherwise nonweightbearing.
-Follow-up with orthopedic surgery in office in 2 to 3 weeks.
-Patient will need to go through rehab
-Patient continues to demand to be discharged home does not understand her condition and rationale of recommendation.
2. Hypercalcemia
Primary hyperparathyroidism
-Patient has history of parathyroid adenoma and not a surgical candidate
-Discussed with primary endocrinology Dr. Macdonald and patient being monitored periodically
-Calcium unfortunately uptrending. PTH in was 99, recheck ordered
-Cant use IVF with EF 20-25%, already on oral lasix 60mg/d
-Discussed with nephro off consult, starting sensipar 30mg/d and will monitor ca level. Monitor for hypocalcemia
3. Acute transaminitis - Improved
H/o cholecystectomy
-Questionable of hepatic congestion versus medication related
-Liver and gallbladder ultrasound showing dilated CBD of 11 mm and pancreatic dilation of 3 mm. No right upper quadrant pain/nausea. Low concern of CBD stone. continue monitoring
-As patient LFT improved rapidly after reinitiation of Lasix this was likely congestive hepatopathy
4. Presumed dementia
-Reported issues with being forgetful. No sundowning agitation or behavioral issues
-Daughter in process of establishing care with neurology
-Psychiatry evaluated in ER and patient does NOT have decision making capacity
-Maintain on PRN ativan for anxiety/agitation
5. Chronic systolic CHF
-Echocardiogram reviewed with patient EF of 20 to 25%
-Patient have ICD in place
-Coreg/spironolactone to be held as patient blood pressure soft
-Maintain on home dose of lasix 60mg/d
6. NIDDM
-Maintained on metformin and dapagliflozin
-Continue insulin sliding scale
7. On digoxin
-Cardiology note reviewed from previous visit in March 26, no indication of patient having A-fib
-Continue for now
8. CAROLE
-Cr trending down, hold lasix dose today.
9. Acute urinary retention
-Patient had close to 1.2 L urine in ER. Required Akers catheter placement
-now akers removed at this point
Moderate protein calorie malnutrition
DNR - patient wants to be dnr/dni
Total time spent : 53 mins
Anticipated Discharge: Within 24 hours
Subjective/Interval History
-
Date of Service: May 12, 2024
resting comfortably in bed
no new issues overnight
Objective Data
-
Labs:
Laboratory Results
05/12/24
07:11
WBC 7.0
Hgb 12.9
Hct 39.4
Plt Count 215
Sodium 139
Potassium 4.1
Chloride 97 L
Carbon Dioxide 30
BUN 22 H
Creatinine 1.1 H
Glucose 129 H
Calcium 11.3 H
Total Bilirubin 1.6 H
AST 38 H
ALT 54 H
Alkaline Phosphatase 104
Vital Signs:
Vital Signs
Temp Pulse Resp BP Pulse Ox
98.0 F 114 16 100/64 97
05/12/24 12:00 05/12/24 12:00 05/12/24 12:00 05/12/24 12:00 05/12/24 12:00
I&O
05/11/24 05/12/24 05/13/24
06:59 06:59 06:59
Intake Total 240 / 240 1210 / 1210
Output Total 210 / 210 950 / 950
Balance 30 / 30 260 / 260
Review of Systems
-
Respiratory: Reports No Symptoms
Cardiac: Reports No Symptoms
Abdomen/GI: Reports No Symptoms
Physical Exam
-
General: Comfortable and Cachectic
HEENT: Negative Oxygen
Neuro: Awake, Alert and Oriented
[2024-05-12] MEDS: SENSIPAR 30 MG PO (15:41)
[2024-05-13] VITALS (9 sets, daily range): BP systolic 89–113; BP diastolic 54–68; PULSE 117; O2SAT 98–99; BMI 16.2
[2024-05-13 06:17] LABS: % Basophils 0.5 % (0-2); % Eosinophils 0.3 % (0-6); % Immature Granulocytes 0.5 % (0-0.5); % Lymphocytes 11.1 % (20.5-51.1); % Monocytes 9.5 % (1.7-9.3); % Neutrophils 78.1 % (42.2-75.2); Absolute Lymphocytes 0.6 10^3/uL (1.2-3.4); Absolute Monocytes 0.6 10^3/uL (0.1-0.6); Absolute Neutrophils 4.5 10^3/uL (1.4-6.5); Hematocrit 36.1 % (37.0-47.0); Hemoglobin 11.9 g/dL (12.0-16.0); Mean Corpuscular Hgb 28.6 pg (27.0-31.0); Mean Corpuscular Volume 86.8 fL (81.0-99.0); Nucleated Red Blood Cells % 0 %; Platelet Count 197 10^3/uL (130-400); Red Blood Cell Count 4.16 10^6/uL (4.20-5.40); Red Cell Dist. Width 13.5 % (11.5-14.5); White Blood Cell Count 5.8 10^3/uL (4.8-10.8)
[2024-05-13 06:43] LABS: ALT (SGPT) 37 U/L (0-35); AST (SGOT) 31 U/L (14-36); Albumin 3.5 g/dl (3.5-5.0); Alkaline Phosphatase 88 U/L (38-126); Blood Urea Nitrogen 27 mg/dl (7-17); Carbon Dioxide 28 mmol/L (22-30); Chloride 98 mmol/L (98-107); Estimated Creatinine Clearance 26 ml/min; Glucose 123 mg/dl (70-99); Potassium 3.6 mmol/L (3.5-5.1); Sodium 140 mmol/L (135-145); Total Bilirubin 1.1 mg/dl (0.2-1.3); Total Protein 6.1 g/dl (6.3-8.2); eGFR 45.19
[2024-05-13] MEDS: SENSIPAR 30 MG PO (08:33)
[2024-05-13] MEDS: GLUCOPHAGE 500 MG PO (08:33)
[2024-05-13] MEDS: COLACE 100 MG PO (08:34)
[2024-05-13] MEDS: SENOKOT 17.2 MG PO (08:34)
[2024-05-13] MEDS: ProAmatine 5 MG PO ×3 (08:34→17:02)
[2024-05-13] MEDS: SINGULAIR 10 MG PO (08:34)
[2024-05-13] MEDS: LASIX 60 MG PO (08:34)
--- NOTE | 2024-05-13 13:35 | W.PN.HOSP.TC ---
Addendum entered and electronically signed by Lady Perez MD 05/13/24 15:04:
I saw and evaluated the patient independently. I reviewed the resident�s note and agree with findings and plan as documented by Dr. Walters.
Patient clearly has evidence of apparent dementia. Cannot tell me how she broke her hip, what orthopedics recommendations were, whether orthopedics indeed saw her. This was confirmed by psychiatry who stated that she does not have capacity to make
medical decisions. Based on my interaction with her today, I would agree with that. Patient is focused on going home regardless of the consequences.
GENERAL: well developed, cachectic, frail, female in no apparent distress
HEENT: NC/AT--no O2 requirements
HEART: regular rate and rhythm, +S1, +S2
LUNGS : clear to auscultation bilaterally
ABDOM: soft, nontender, nondistended, + bowel sounds
EXT: no cyanosis, clubbing, or edema
NEUROLOGIC: apparent dementia
Traumatic left hip greater trochanter fracture--unwitnessed fall--Patient with osteopenia which also could contribute --apprec ortho--non operative management with non weight bearing to the LLE except for transfers for 6 weeks. Xray in orthopedic
office in 2-3 weeks--pain controlled on current regimen, will decrease oxycodone--PT/OT/CM for SNF
Dementia--According to the daughter the patient has been forgetful and emotionally labile as documented by Dr. Walters--apprec psych--cannot make her own medical decisions
Chronic congestive Heart failure reduced ejection fraction without acute exacerbation--EF 20-25%--cont home lasix/coreg/aldactone as BP allows
Acute Urinary Retention--Patient constantly reports that she has to pee, even when redirected that she is able to go--Patient is attempting to stand up to use the bathroom--Continue indwelling Negrete catheter--would not attempt voiding trial until pt
works more with PT--consider adding flomax--decrease oxycodone
Hypercalcemia--likely due to parathyroid adenoma--not surgical candidate--follows with endocrine--Vitamin D resulted 32.4, within normal limits--PTH intact pending--sensipar started
CAROLE--Creatinine 1.4 on admission, baseline is 0.9, might be NEW baseline--Avoid nephrotoxins
Hyperlipidemia--Continue home simvastatin
Rwg-sqynxnr-igbxdsbkw type 2 diabetes mellitus-- patient on home Farxiga and metformin
Transaminitis--Patient AST, ALT and T bilirubin were previously trending upwards--Liver/gallbladder ultrasound demonstrated cholecystectomy with dilatation common bile duct measuring approximately 11 mm--LFTs have downtrend and are now within normal
limits
Moderate protein calorie malnutrition--consider nutrition consult
DVT proph
code status -- DNR
Original Note:
Today's Communication/Plan
-
Case management consult pending SNF placement
Assessment / Plan
Assessment / Plan
IMPRESSION:
83-year-old female here for an unwitnessed mechanical fall, found to have a broken left hip
PLAN:
# Traumatic left hip greater trochanter fracture
Patient has a past medical history of osteopenia, broken hip was secondary to traumatic fall
CT scan demonstrates a left greater hip trochanter fracture
Patient been taking morphine and oxycodone for pain
Pain is well-controlled on this regiment, patient reports she can still feel it but is very content with her current pain regimen
Orthopedics decided that she is not a surgical candidate and recommended nonoperative management as well as physical therapy and Occupational Therapy
Will follow up with orthopedics in office in 2-3 weeks
PT OT working with patient
Case management consult ordered for placement to SNF
#Dementia
According to the daughter the patient has been forgetful and emotionally labile
They attempted to get an outpatient appoint with neurology for a formal dementia diagnosis, however they were unable to see the doctor due to insurance reasons
Unclear if patient has dementia and therefore if she has capacity to make her own medical decisions
Psychiatry consult for capacity evaluation, psychiatry has evaluated the patient and deemed that she does not have capacity for medical decisions
On our exam today patient seemed confused, she was not able to explain why she was here or what the plan for her was
We evaluated the patient does not have capacity
#Heart failure reduced ejection fraction
Most recent echo demonstrates ejection fraction of 20 to 25%
Continue home lasix 60
Holding coreg/spirnolactone as BP is soft
#Acute Urinary Retention
Patient constantly reports that she has to pee, even when redirected that she is able to go
Patient is attempting to stand up to use the bathroom
Continue indwelling Negrete catheter
Will attempt voiding trial
#Hypercalcemia
Patient's calcium 10.8 on admission, [address] Macdonald for endocrinology
Per Dr. Macdonald, patient's outpatient supervisor seaming. She was not a candidate for parathyroid surgery, she had does have a parathyroid adenoma, right lower pole. This does not significantly impact her calcium levels or bone density. They
have just been monitoring her calcium, her last calcium was 10.4 and has been wildly fluctuating. She has another appoint with Dr. Macdonald next year in February.
Vitamin D resulted 32.4, within normal limits
PTH intact pending
Currently holding IV fluids as patient has heart failure with reduced ejection fraction
Sensipar 30 Mg per day was initiated
Trend with daily CMP
#CAROLE
Creatinine 1.4 on admission, baseline is 0.9
CR 1.2 today
Status post IV fluid bolus
Avoid nephrotoxins
Follow with daily BMP
#Hyperlipidemia
Continue home simvastatin
#Iqq-cwqpqmb-cxyggqrug diabetes mellitus
Continue patient on home Farxiga and metformin
#Transaminitis
Patient AST, ALT and T bilirubin were previously trending upwards
Liver/gallbladder ultrasound demonstrated cholecystectomy with dilatation common bile duct measuring approximately 11 mm
LFTs have downtrend and are now within normal limits
#CODE STATUS
Conversation was had in the emergency department with the patient regarding her CODE STATUS, her wishes were to be DNR/DNI
Patient does not have a power of compliance attorney and her next of kin would be her
It is unclear if patient has capacity to make medical decisions at this time, currently her DNR/DNI will be honored
In emergency department psychiatry evaluated patient and deemed she did not have capacity
#Moderate protein calorie malnutrition
CODE STATUS: DNR/DNI
DVT prophylaxis: Heparin
Anticipated Discharge: Within 24 hours
Subjective/Interval History
-
Date of Service: May 13, 2024
No acute events overnight
Patient still confused and asking to be sent home
She said she does not want rehab
Objective Data
-
Labs:
Laboratory Results
05/13/24
05:41
WBC 5.8
Hgb 11.9 L
Hct 36.1 L
Plt Count 197
Sodium 140
Potassium 3.6
Chloride 98
Carbon Dioxide 28
BUN 27 H
Creatinine 1.2 H
Glucose 123 H
Calcium 11.0 H
Total Bilirubin 1.1
AST 31
ALT 37 H
Alkaline Phosphatase 88
Vital Signs:
Vital Signs
Temp Pulse Resp BP Pulse Ox
97.8 F 127 19 113/68 96
05/13/24 12:05 05/13/24 12:05 05/13/24 12:05 05/13/24 12:46 05/13/24 12:05
I&O
05/12/24 05/13/24 05/14/24
06:59 06:59 06:59
Intake Total 1210 / 1210 1080 / 1080
Output Total 950 / 950
Balance 260 / 260 1080 / 1080
Review of Systems
-
Unable to obtain full review of systems at this time due to: Dementia
Physical Exam
-
General: Well Developed, No Apparent Distress, Comfortable and Conversant
Respiratory: Clear to Auscultation
Cardiac: Regular Rhythm and S1/S2
GI: Soft, Nontender, Nondistended and Normal Bowel Sounds
Musculoskeletal: No Edema
Skin: Warm and Dry
Neuro: Awake; Negative Alert, Oriented or AO x 3
Psych: Calm; Negative Intact Judgement/Insight
Data Reviewed
-
Medical Tests (Nuc Med, Echo etc): Report Reviewed by me and Discussed with Physician
Labs: Labs Reviewed by me and Discussed with Physician
--- NOTE | 2024-05-13 14:53 | CM ---
Addendum entered by Hetalashley Huang 05/13/24 16:04:
Call from dtr- update provided
She is in agreement with dc dispo plan
Addendum entered by Hetalashley Huang 05/13/24 15:24:
Per [facility], pt accepted for admission tomorrow
Original Note:
CM reviewed chart and ADC tomorrow
Call with [facility]- denied due to bed availability
Outreach to [facility] admissions- awaiting outcome of referral
VM left for dtr with update and requesting add'l SNF choices in the case [facility] cannot accept
Awaiting call back
Discharge Disposition- SNF
[2024-05-13 17:02] LABS: Glucose - Point of Care 124 mg/dl (70-99)
[2024-05-13] MEDS: SENOKOT PO (20:15)
[2024-05-13] MEDS: COLACE PO (20:15)
[2024-05-13 21:34] LABS: Glucose - Point of Care 123 mg/dl (70-99)
[2024-05-14 03:25] VITALS: BP 117/59
[2024-05-14 06:00] VITALS: BMI 16.4
[2024-05-14 06:21] LABS: Hemoglobin 11.3 g/dL (12.0-16.0); Mean Corp Hgb Conc. 33.2 g/dL (33.0-37.0); Mean Corpuscular Hgb 28.4 pg (27.0-31.0); Mean Corpuscular Volume 85.4 fL (81.0-99.0); Mean Platelet Volume 9.9 fL (7.4-10.4); Platelet Count 179 10^3/uL (130-400); Red Blood Cell Count 3.98 10^6/uL (4.20-5.40); Red Cell Dist. Width 13.3 % (11.5-14.5); White Blood Cell Count 4.3 10^3/uL (4.8-10.8)
[2024-05-14 06:48] LABS: Blood Urea Nitrogen 27 mg/dl (7-17); Calcium 10.6 mg/dl (8.4-10.2); Carbon Dioxide 27 mmol/L (22-30); Chloride 98 mmol/L (98-107); Estimated Creatinine Clearance 27 ml/min; Glucose 96 mg/dl (70-99); Potassium 3.2 mmol/L (3.5-5.1); Sodium 139 mmol/L (135-145); eGFR 50.17
[2024-05-14 07:35] VITALS: BP 109/76
[2024-05-14 07:59] LABS: Glucose - Point of Care 125 mg/dl (70-99)
[2024-05-14] MEDS: LASIX 60 MG PO (08:42)
[2024-05-14] MEDS: SINGULAIR 10 MG PO (08:43)
[2024-05-14] MEDS: KCL 40 MEQ PO (08:43)
[2024-05-14] MEDS: ProAmatine PO ×2 (08:43→12:11)
[2024-05-14] MEDS: SENSIPAR 30 MG PO (08:43)
[2024-05-14] MEDS: COLACE PO (08:44)
[2024-05-14] MEDS: SENOKOT PO (08:44)
--- NOTE | 2024-05-14 09:00 | W.PN.HOSP.TC ---
Addendum entered and electronically signed by Lady Perez MD 05/14/24 21:42:
I saw and evaluated the patient independently. I reviewed the resident�s note and agree with findings and plan as documented by Dr. Walters.
GENERAL: well developed, cachectic, frail, female in no apparent distress
HEENT: NC/AT--no O2 requirements
HEART: regular rate and rhythm, +S1, +S2
LUNGS : clear to auscultation bilaterally
ABDOM: soft, nontender, nondistended, + bowel sounds
EXT: no cyanosis, clubbing, or edema
NEUROLOGIC: apparent dementia
Traumatic left hip greater trochanter fracture--unwitnessed fall--Patient with osteopenia which also could contribute --apprec ortho--non operative management with non weight bearing to the LLE except for transfers for 6 weeks. Xray in orthopedic
office in 2-3 weeks--pain controlled on current regimen, will decrease oxycodone--PT/OT/CM for SNF
Dementia--According to the daughter the patient has been forgetful and emotionally labile as documented by Dr. Walters--apprec psych--cannot make her own medical decisions
Chronic congestive Heart failure reduced ejection fraction without acute exacerbation--EF 20-25%--cont home lasix/coreg/aldactone as BP allows
Acute Urinary Retention--Patient constantly reports that she has to pee, even when redirected that she is able to go--Patient is attempting to stand up to use the bathroom--Continue indwelling Negrete catheter--would not attempt voiding trial until pt
works more with PT--consider adding flomax--decrease oxycodone
Hypercalcemia--likely due to parathyroid adenoma--not surgical candidate--follows with endocrine--Vitamin D resulted 32.4, within normal limits--PTH intact pending--sensipar started
CAROLE--Creatinine 1.4 on admission, baseline is 0.9, might be NEW baseline--Avoid nephrotoxins
Hyperlipidemia--Continue home simvastatin
Lea-svaomnq-vncrzjaer type 2 diabetes mellitus-- patient on home Farxiga and metformin
Transaminitis--Patient AST, ALT and T bilirubin were previously trending upwards--Liver/gallbladder ultrasound demonstrated cholecystectomy with dilatation common bile duct measuring approximately 11 mm--LFTs have downtrend and are now within normal
limits
Moderate protein calorie malnutrition--consider nutrition consult
DVT proph
code status -- DNR
disposition--d/c to SNF
Original Note:
Today's Communication/Plan
-
Discharge to [facility] facility
Assessment / Plan
Assessment / Plan
IMPRESSION:
83-year-old female here for an unwitnessed mechanical fall, found to have a broken left hip
PLAN:
# Traumatic left hip greater trochanter fracture
Patient has a past medical history of osteopenia, broken hip was secondary to traumatic fall
CT scan demonstrates a left greater hip trochanter fracture
Patient been taking morphine and oxycodone for pain
Pain is well-controlled on this regiment, patient reports she can still feel it but is very content with her current pain regimen
Orthopedics decided that she is not a surgical candidate and recommended nonoperative management as well as physical therapy and Occupational Therapy
Will follow up with orthopedics in office in 2-3 weeks
PT OT working with patient
Patient will be discharged to [facility] facility for rehab
#Dementia
According to the daughter the patient has been forgetful and emotionally labile
They attempted to get an outpatient appoint with neurology for a formal dementia diagnosis, however they were unable to see the doctor due to insurance reasons
Unclear if patient has dementia and therefore if she has capacity to make her own medical decisions
Psychiatry consult for capacity evaluation, psychiatry has evaluated the patient and deemed that she does not have capacity for medical decisions
Patient still confused, repeating phrases and, she was not able to explain why she was here or what the plan for her was
We evaluated the patient does not have capacity
#Heart failure reduced ejection fraction
Most recent echo demonstrates ejection fraction of 20 to 25%
Continue home lasix 60
#Acute Urinary Retention
Patient constantly reports that she has to pee, even when redirected that she is able to go
Patient is attempting to stand up to use the bathroom
Continue indwelling Negrete catheter
Will attempt voiding trial
#Hypercalcemia
Improving
Patient's calcium 10.8 on admission, [address] Macdonald for endocrinology
Per Dr. Macdonald, patient's outpatient manager financial reporting. She was not a candidate for parathyroid surgery, she had does have a parathyroid adenoma, right lower pole. This does not significantly impact her calcium levels or bone density. They
have just been monitoring her calcium, her last calcium was 10.4 and has been wildly fluctuating. She has another appoint with Dr. Macdonald next year in February.
Vitamin D resulted 32.4, within normal limits
PTH intact pending
Currently holding IV fluids as patient has heart failure with reduced ejection fraction
Sensipar 30 Mg per day was initiated, calcium levels did trend downwards
Sensipar was discontinued on discharge as patient is already following Dr. Macdonald, patient will follow-up with Dr. Macdonald next year as previously arranged
Trend with daily CMP
#CAROLE
Resolved
Creatinine 1.4 on admission, baseline is 0.9
CR 1.1 today
Status post IV fluid bolus
Avoid nephrotoxins
Follow with daily BMP
#Hypokalemia
Potassium 3.2 this morning
Gave 40 mill equivalents potassium chloride p.o.
Patient will be discharged on potassium supplement, which was her home medication
#Hyperlipidemia
Continue home simvastatin
#Bex-nxitokw-wplahwjzw diabetes mellitus
Continue patient on home Farxiga and metformin
#Transaminitis
Patient AST, ALT and T bilirubin were previously trending upwards
Liver/gallbladder ultrasound demonstrated cholecystectomy with dilatation common bile duct measuring approximately 11 mm
LFTs have downtrend and are now within normal limits
#CODE STATUS
Conversation was had in the emergency department with the patient regarding her CODE STATUS, her wishes were to be DNR/DNI
Patient does not have a power of staff attorney and her next of kin would be her
It is unclear if patient has capacity to make medical decisions at this time, currently her DNR/DNI will be honored
In emergency department psychiatry evaluated patient and deemed she did not have capacity
#Moderate protein calorie malnutrition
CODE STATUS: DNR/DNI
DVT prophylaxis: Heparin
Anticipated Discharge: Today
Subjective/Interval History
-
Date of Service: May 14, 2024
No acute events overnight
Called and spoke to daughter Rita and updated her on her mother's situation
Objective Data
-
Labs:
Laboratory Results
05/14/24
05:43
WBC 4.3 L
Hgb 11.3 L
Hct 34.0 L
Plt Count 179
Sodium 139
Potassium 3.2 L
Chloride 98
Carbon Dioxide 27
BUN 27 H
Creatinine 1.1 H
Glucose 96
Calcium 10.6 H
Vital Signs:
Vital Signs
Temp Pulse Resp BP Pulse Ox
98.2 F 115 16 117/59 96
05/14/24 07:35 05/14/24 07:35 05/14/24 07:35 05/14/24 08:43 05/14/24 07:35
I&O
05/13/24 05/14/24 05/15/24
06:59 06:59 06:59
Intake Total 1080 / 1080 600 / 600
Balance 1080 / 1080 600 / 600
Review of Systems
-
Unable to obtain full review of systems at this time due to: Dementia
Respiratory: Reports No Symptoms
Cardiac: Reports No Symptoms
Abdomen/GI: Reports No Symptoms
Physical Exam
-
General: No Apparent Distress and Conversant
Respiratory: Clear to Auscultation
Cardiac: Regular Rhythm and S1/S2
GI: Soft, Nontender and Normal Bowel Sounds
Musculoskeletal: No Edema
Skin: Warm and Dry
Neuro: Awake; Negative Alert, Oriented or AO x 3
Psych: Calm; Negative Intact Judgement/Insight
Data Reviewed
-
Labs: Labs Reviewed by me and Discussed with Physician
[2024-05-14 09:53] LABS: COVID-19 Antigen Negative (Negative)
--- NOTE | 2024-05-14 10:25 | CM ---
CM reviewed pt with Dr Walters- ready for dc
Bed confirmed with [facility] admissions
Update to dtr on phone- IMM verbally reviewed
Copy left bedside for visit later today
Transport forms completed
agents' records clerk to arrange for BLS transport
Discharge Disposition- [facility] via BLS (awaiting transport time)
Phone- [phone] Fax- [phone]
[2024-05-14 10:38] LABS: Intact PTH 353.1 pg/ml (13.6-85.8)
[2024-05-14 11:00] VITALS: BP 144/85
[2024-05-14 11:52] LABS: Glucose - Point of Care 133 mg/dl (70-99)
[2024-05-14] MEDS: LANOXIN 125 MCG PO (12:16)
--- NOTE | 2024-05-14 16:10 | W.DCSUMMARY ---
Addendum entered and electronically signed by Lady Perez MD 05/14/24 21:44:
Read, reviewed, and agree. See same day progress note for additional details. Time spent coordinating care, DC planning, review of DC plan of care with resident, transition of care, review of records in EMR, med rec, consults, notes, d/w
consultants, nursing, family, and CM = 27 minutes
Original Note:
Discharge Summary
Discharge Data
Date of Admission: 05/08/24
Date of Discharge: 05/14/24
-
Pending Results: No
Hospital Course
Discharging Physician : Sami Walters
Disposition : SNF
Primary care physician : Dr. Carrasco
Principal Discharge diagnosis : Left hip greater trochanter fracture
Chronic Discharge diagnosis : Dementia, acute urinary retention, hypercalcemia, parathyroid adenoma, CAROLE, hypokalemia, hyperlipidemia, tot-iinnzjc-iccvparzi diabetes mellitus, transaminitis
Hospital Course :
83-year-old female with past medical history of presumed dementia hypertension parathyroid adenoma heart failure presented to the emergency department after a nonwitnessed mechanical fall at home. Apparently patient slid out of bed and landed on
her left hip and shoulder. Typically patient is able to ambulate without assistance. X-ray and CT in ED demonstrated left hip greater trochanter fracture. Patient was admitted for further evaluation and management. Orthopedics was consulted and
decided that the patient was not a surgical candidate. Patient will follow-up with orthopedics in the office in 2 to 3 weeks. There is concern for patient's decision making capacity, psychiatry was consulted and after evaluation it was determined
that the patient did not have capacity to make her own medical decisions due to dementia and confusion. Patient does not have a formal diagnosis however the daughter is working to see neurology as an outpatient. During her stay it was noted that
the patient had hypercalcemia, patient's dip brazier Dr. Macdonald was contacted regarding this. Dr. Macdonald says that patient has a parathyroid adenoma that is not amenable to surgery, her hypercalcemia varies wildly and they are
currently observing it. Patient was not a candidate for IV fluids due to heart failure. Patient was started on Sensipar while inpatient which did reduce the hypercalcemia however this medication was discontinued at discharge and patient will
follow-up with her endocrinology for management of hypercalcemia. At the time of discharge patient's acute kidney injury and hypokalemia had resolved. PT OT evaluated the patient and decided that she [facility] and
physical [facility]hab. Patient did not want to attend SNF however she was able to be convinced to try it for a few days before being discharged home. [facility]. Patient will follow-up with
orthopedics in 2 to 3 weeks after discharge from [facility] as well as her primary care physician within 1 week of discharge from [facility].
Important imaging findings :
Hip x-ray 05/08/2024 hip x-ray, impression:
Prior screw fixation of the left femoral neck without evidence of hardware complication or acute periprosthetic fracture.
Mild degenerative changes of the left hip with moderate degenerative changes of the right hip.
05/08/[address] without contrast, impression:
Prior screw fixation of the proximal left femur. There is a comminuted, minimally displaced fracture through the greater trochanter, superior to the surgical screws
05/11/2024 abdominal ultrasound, impression:
There is cholecystectomy
There is intrahepatic and extrahepatic biliary dilatation with the common duct measuring approximately 11 mm.
Such biliary dilatation may be seen normally in postcholecystectomy patients, however, there is also borderline dilatation of the pancreatic duct which measures 3 mm raising concern for possible obstruction at the ampulla. If clinically indicated,
MRCP could be performed for further evaluation
Procedure findings :
No procedures
Discharge Plan
-
Patient Disposition: Correction/SNF
Discharge Diagnosis/Procedures: Closed fracture of left hip, dementia, heart failure reduced ejection fraction, acute urinary retention, hypercalcemia, parathyroid adenoma, CAROLE, hyperlipidemia, ugw-xxqymdj-cbcnugeky diabetes mellitus, transaminitis,
moderate protein calorie malnutrition
Condition: Fair
Diet: Diabetic, Carb Controlled
Activity: With assistance and Do not bear weight L leg
Driving Restrictions: No driving
Bathing Restrictions: None
Other Services: PT and OT
Activity Restrictions/Additional Instructions:
Please follow-up with Dr. Johnson, orthopedics in 2 to 3 weeks of discharge from [facility] for management of your left hip fracture
Please follow-up with your primary care physician Dr. Burch within 1 week of discharge from [facility]
Referrals:
Alex Villagomez MD [Active] - in two to three weeks
Kiersten Carrasco MD [Family Provider] - in less than 1 week
Prescriptions:
Continued
metformin 500 MG tablet
500 mg PO BID
digoxin 0.125 MG tablet
0.125 mg PO Q48H
montelukast 10 MG tablet
10 mg PO DAILY
flaxseed oil 1,000 MG capsule
1,000 mg PO DAILY
carvedilol 12.5 mg Tablet
12.5 mg PO BID
simvastatin 10 mg Tablet
10 mg PO HS
potassium chloride 10 mEq Tablet Extended Release
10 meq PO BID
furosemide [Lasix] 20 mg Tablet
60 mg PO DAILY
dapagliflozin propanediol [Farxiga] 10 mg Tablet
10 mg PO DAILY
cyanocobalamin (vitamin B-12) 1,000 mcg Tablet
1,000 mcg PO DAILY
spironolactone 25 mg Tablet
25 mg PO DAILY
ferrous sulfate 325 mg (65 mg iron) Tablet
325 mg PO DAILY
Discharge Orders:
Discharge Patient (As Directed); Ordered 05/14/24
Ordered By: Marlon Walters
Discharge Date and Time
Discharge Date/Time: 05/14/24 14:54
Print Language: FRISIAN
== END 2024-05-14 14:54 | DRG 536 ==
LOC: 3 WEST ACU 13:54
PROVIDERS: Registered Nurse; ADMITTING PHYSICIAN Hospitalist; ATTENDING PHYSICIAN Internal Medicine; CONSULT PHYSICIAN Orthopaedic Surgery; CONSULT PHYSICIAN Psychiatry & Neurology Psychiatry; EMERGENCY PHYSICIAN Emergency Medicine; FAMILY PHYSICIAN Family Medicine
DX: S72.112A Displaced fracture of greater trochanter of left femur, initial encounter for closed fracture (principal); I50.22 Chronic systolic (congestive) heart failure; E44.0 Moderate protein-calorie malnutrition; I42.9 Cardiomyopathy, unspecified; N17.9 Acute kidney failure, unspecified; Z68.1 Body mass index [BMI] 19.9 or less, adult; Z66 Do not resuscitate; F03.90 Unspecified dementia, unspecified severity, without behavioral disturbance, psychotic disturbance, mood disturbance, and anxiety; I11.0 Hypertensive heart disease with heart failure; E78.5 Hyperlipidemia, unspecified; D35.1 Benign neoplasm of parathyroid gland; E11.9 Type 2 diabetes mellitus without complications; E83.52 Hypercalcemia; I25.10 Atherosclerotic heart disease of native coronary artery without angina pectoris; R74.01 Elevation of levels of liver transaminase levels; R33.8 Other retention of urine; L89.151 Pressure ulcer of sacral region, stage 1; M85.80 Other specified disorders of bone density and structure, unspecified site; Z88.2 Allergy status to sulfonamides; Z85.3 Personal history of malignant neoplasm of breast; Z88.3 Allergy status to other anti-infective agents; Z79.84 Long term (current) use of oral hypoglycemic drugs; Z79.899 Other long term (current) drug therapy; W19.XXXA Unspecified fall, initial encounter; Z91.041 Radiographic dye allergy status; Z91.81 History of falling; Z95.810 Presence of automatic (implantable) cardiac defibrillator; Z11.52 Encounter for screening for COVID-19
CPT/HCPCS: 73502; 73700; 76700; 80048; 80053; 81003; 82306; 82550; 82962; 83970; 85025; 85027; 87811; 93005; 96361; 96374; 97116; 97163; 97167; 97530; 97535; 99285

== ENCOUNTER → 2024-05-17 11:49 | Outpatient (REF) | payer MEDICARE, SELFPAY ==
[2024-05-17 12:08] LABS: % Basophils 0.4 % (0-2); % Eosinophils 2.1 % (0-6); % Immature Granulocytes 0.4 % (0-0.5); % Lymphocytes 24.4 % (20.5-51.1); % Monocytes 6.3 % (1.7-9.3); % Neutrophils 66.4 % (42.2-75.2); Absolute Eosinophils 0.1 10^3/uL (0-0.7); Absolute Lymphocytes 1.3 10^3/uL (1.2-3.4); Absolute Monocytes 0.3 10^3/uL (0.1-0.6); Absolute Neutrophils 3.5 10^3/uL (1.4-6.5); Hematocrit 32.6 % (37.0-47.0); Hemoglobin 10.6 g/dL (12.0-16.0); Mean Corp Hgb Conc. 32.5 g/dL (33.0-37.0); Mean Corpuscular Hgb 28.2 pg (27.0-31.0); Mean Corpuscular Volume 86.7 fL (81.0-99.0); Nucleated Red Blood Cells % 0 %; Platelet Count 196 10^3/uL (130-400); Red Blood Cell Count 3.76 10^6/uL (4.20-5.40); Red Cell Dist. Width 13.4 % (11.5-14.5); White Blood Cell Count 5.2 10^3/uL (4.8-10.8)
[2024-05-17 12:26] LABS: ALT (SGPT) 21 U/L (0-35); AST (SGOT) 26 U/L (14-36); Albumin 3.4 g/dl (3.5-5.0); Alkaline Phosphatase 73 U/L (38-126); Blood Urea Nitrogen 30 mg/dl (7-17); Calcium 10.9 mg/dl (8.4-10.2); Carbon Dioxide 29 mmol/L (22-30); Chloride 100 mmol/L (98-107); Glucose 93 mg/dl (70-99); Potassium 3.9 mmol/L (3.5-5.1); Sodium 141 mmol/L (135-145); Total Bilirubin 0.9 mg/dl (0.2-1.3); eGFR 50.17
== END ==
LOC: OLABP 11:49
PROVIDERS: ATTENDING PHYSICIAN Family Medicine
DX: F03.90 Unspecified dementia, unspecified severity, without behavioral disturbance, psychotic disturbance, mood disturbance, and anxiety (principal); I50.21 Acute systolic (congestive) heart failure; E83.52 Hypercalcemia; N17.9 Acute kidney failure, unspecified; I42.0 Dilated cardiomyopathy; E78.5 Hyperlipidemia, unspecified
CPT/HCPCS: 36415; 80053; 85025

== ENCOUNTER → 2024-06-10 11:45 | Outpatient (REF) | payer MEDICARE, SELFPAY ==
[2024-06-11 12:06] LABS: % Basophils 0.5 % (0-2); % Eosinophils 1.5 % (0-6); % Immature Granulocytes 0.2 % (0-0.5); % Lymphocytes 19.1 % (20.5-51.1); % Monocytes 7.4 % (1.7-9.3); % Neutrophils 71.3 % (42.2-75.2); Absolute Eosinophils 0.1 10^3/uL (0-0.7); Absolute Lymphocytes 1.3 10^3/uL (1.2-3.4); Absolute Monocytes 0.5 10^3/uL (0.1-0.6); Absolute Neutrophils 4.7 10^3/uL (1.4-6.5); Hematocrit 37.3 % (37.0-47.0); Hemoglobin 11.5 g/dL (12.0-16.0); Mean Corp Hgb Conc. 30.8 g/dL (33.0-37.0); Mean Corpuscular Hgb 29.3 pg (27.0-31.0); Mean Corpuscular Volume 95.2 fL (81.0-99.0); Mean Platelet Volume 10.3 fL (7.4-10.4); Nucleated Red Blood Cells % 0 %; Platelet Count 206 10^3/uL (130-400); Red Blood Cell Count 3.92 10^6/uL (4.20-5.40); Red Cell Dist. Width 14.6 % (11.5-14.5); White Blood Cell Count 6.6 10^3/uL (4.8-10.8)
== END ==
LOC: CLAB 11:45
PROVIDERS: ATTENDING PHYSICIAN Family Medicine
DX: D64.9 Anemia, unspecified (principal)
CPT/HCPCS: 36415; 85025

== ENCOUNTER → 2024-06-10 17:29 | Outpatient (REF) | payer MEDICARE, SELFPAY | LOC: OLABP 17:29 | PROVIDERS: ATTENDING PHYSICIAN Internal Medicine Cardiovascular Disease; FAMILY PHYSICIAN Family Medicine | DX: D64.9 Anemia, unspecified (principal) | CPT/HCPCS: 36415 ==

== ENCOUNTER → 2024-12-17 09:11 | Outpatient (REF) | payer MEDICARE, SELFPAY | LOC: RAD 09:11 | PROVIDERS: ATTENDING PHYSICIAN Internal Medicine Endocrinology, Diabetes & Metabolism; FAMILY PHYSICIAN Nurse Practitioner Acute Care | DX: E83.52 Hypercalcemia (principal); E04.2 Nontoxic multinodular goiter | CPT/HCPCS: 76536 ==

== ENCOUNTER 2025-03-13 16:37 | Emergency (ER) | payer MEDICARE, SELFPAY ==
[2025-03-13 16:42] VITALS: BP 101/58
[2025-03-13 18:10] VITALS: BMI 18.2
[2025-03-13 18:13] VITALS: BP 116/67
--- NOTE | 2025-03-13 19:51 | ED.GENMED ---
History of Present Illness
General
Chief Complaint: Fall
Time Seen by Provider: 03/13/25 17:57
History of Present Illness
History of Present Illness:
84-year-old female presents the emergency department for evaluation after a mechanical fall, patient is unable to provide substantial history however according to a bystander to call 911 she tripped while picking up sticks outdoors and fell onto her
right side. She is not on blood thinners. She currently complains of right shoulder pain and right chest wall pain. She is able to ambulate.
Past History
Past History
ED Past Medical History: Arrthythmia (sinus tachycardia), CAD, Cancer (breast), CHF (Cardiomyopathy), HTN, NIDDM and Other (Osteopenia, dementia)
ED Past Surgical History: Appendectomy, Cardiac ([facility] June 2015), Cholecystectomy and Orthopedic
Social History
Tobacco: Non-smoker
Alcohol: None
Personal:
Living: with family
Employment: Retired
Family History
Family History: Other (Father with kidney cancer, mother with dementia)
Review of Systems
Review of Systems
Allergies reviewed?: Yes
All Other Systems: ROS reviewed and negative except as documented in HPI and ROS
Phy Exam
Physical Exam
Physical Exam:
GEN: Well appearing, NAD, WDWN
Eyes: PERRLA, EOMs intact, no scleral icterus
HENT: NCAT, oral mucosa moist
Lungs: CTAB, no wheezes, rales, rhonchi, normal chest wall excursion
Cardiac: RRR, no M/R/G, no peripheral edema. Radial pulses 2+ bilat
Abdomen: S, NT, ND, NABS, no masses or hepatosplenomegaly
Neuro: Alert and oriented to baseline, ambulating steadily, extremities freely without patient
MSK: No gross deformity or ecchymosis. Minor redness to the right posterior shoulder as well as right chest wall with no ecchymosis or gross deformities
Skin: No rashes, petechiae. Normal color, no pallor or jaundice.
Psych: Calm, cooperative, proper hygiene
Course
Orders/Labs/Results
Orders:
Orders
03/13/25 18:19
CR Hip - RT w/wo Pel 2-3 Vw* Urgent
Comment:
Reason For Exam: fall
Include a pelvis x-ray?: Yes
CR Shoulder - Right Min 2 View Urgent
Comment:
Reason For Exam: fall
03/13/25 18:20
CR Chest - 2 Views Urgent
Comment:
Reason For Exam: fall
Vital Signs
Initial and Last Documented VS:
Initial Vital Signs
Temp Pulse Resp BP Pulse Ox
98.1 F 88 20 101/58 97
03/13/25 16:42 03/13/25 16:42 03/13/25 16:42 03/13/25 16:42 03/13/25 16:42
Last Documented Vital Signs
Temp Pulse Resp BP Pulse Ox
98.1 F 86 17 116/67 99
03/13/25 16:42 03/13/25 18:13 03/13/25 18:13 03/13/25 18:13 03/13/25 19:52
MDM/Problems Addressed
MDM/Problems Addressed:
Imaging no evidence for traumatic abnormality. Chest x-ray does show some hilar fullness on the right however no dense infiltrate, no pleural effusion or pneumothorax. She is ambulating well thus no clinical concern for occult hip fracture. No
signs of head trauma not on thinners do not feel that CT of the head is indicated given that she is neurologically at baseline
*Pulse Oximetry
SaO2: 99
Oxygen Mode of Delivery: Room air
Patient hypoxic: no
*Critical Care Note
Total Time (30-74mins, 75-104mins- exclusive of procedures): Not Applicable
ED Attending Note
-
Portions of this chart may have been created with voice recognition software.� Occasional wrong word or��sound alike� substitutions may have occurred due to the inherent limitations of voice recognition software.
Discharge Plan
Departure
Patient Disposition: Home (Routine Discharge)
Date of Disposition: 03/13/25
Time of Disposition: 19:51
Patient with high blood pressure during this ER visit?: No
Discharge Problem:
Fall
Instructions: Fall Prevention for Older Adults
Prescriptions:
No Action
metformin 500 MG tablet
500 mg PO BID
digoxin 0.125 MG tablet
0.125 mg PO Q48H
montelukast 10 MG tablet
10 mg PO DAILY
flaxseed oil 1,000 MG capsule
1,000 mg PO DAILY
carvedilol 12.5 mg Tablet
12.5 mg PO BID
simvastatin 10 mg Tablet
10 mg PO HS
potassium chloride 10 mEq Tablet Extended Release
10 meq PO BID
furosemide [Lasix] 20 mg Tablet
60 mg PO DAILY
dapagliflozin propanediol [Farxiga] 10 mg Tablet
10 mg PO DAILY
cyanocobalamin (vitamin B-12) 1,000 mcg Tablet
1,000 mcg PO DAILY
spironolactone 25 mg Tablet
25 mg PO DAILY
ferrous sulfate 325 mg (65 mg iron) Tablet
325 mg PO DAILY
Interventions
Interventions:
*Risk Screen - Suicide Last Done: 03/13/25 16:42
*General Assessment Last Done: 03/13/25 18:11
*Neglect/Abuse Screening Last Done: 03/13/25 16:42
*Nursing Disposition Last Done: 03/13/25 20:06
ED-Musculoskeletal Assessment Last Done: 03/13/25 18:20
ED- Neurological Assessment Last Done: 03/13/25 18:20
ED-Skin Assessment Last Done: 03/13/25 18:20
Discharge Date and Time
Discharge Date/Time: 03/13/25 20:08
Print Language: DIVEHI
== END 2025-03-13 20:08 | disposition home or self-care (01) ==
LOC: EMR 16:37
PROVIDERS: EMERGENCY PHYSICIAN Emergency Medicine; FAMILY PHYSICIAN Family Medicine
DX: M25.511 Pain in right shoulder (principal); R07.89 Other chest pain; E11.9 Type 2 diabetes mellitus without complications; F03.90 Unspecified dementia, unspecified severity, without behavioral disturbance, psychotic disturbance, mood disturbance, and anxiety; I11.0 Hypertensive heart disease with heart failure; I50.9 Heart failure, unspecified; I25.10 Atherosclerotic heart disease of native coronary artery without angina pectoris; Z98.82 Breast implant status
CPT/HCPCS: 99284; 71046; 73030; 73502

== ENCOUNTER → 2025-06-06 07:54 | Outpatient (REF) | payer MEDICARE, SELFPAY | LOC: RAD 07:54 | PROVIDERS: ATTENDING PHYSICIAN Internal Medicine Endocrinology, Diabetes & Metabolism; FAMILY PHYSICIAN Family Medicine | DX: E04.2 Nontoxic multinodular goiter (principal) | CPT/HCPCS: 76536 ==